=== PATIENT | female | born 1955 | race Caucasian/White ===

== ENCOUNTER 2021-05-19 22:45 | Inpatient (IN) ==
[2021-05-19] MEDS ORDERED: DIPH,PERTUSS(ACELL),TET VAC/PF 0.5 ML SYRINGE IM ONE (23:14)
[2021-05-19] MEDS ORDERED: BACITRACIN TOPICAL OINT 15 GM TUBE TOPICAL ONE (23:15)
[2021-05-19] MEDS ORDERED: FOLIC ACID 1 MG TABLET PO ONE (23:40)
[2021-05-19] MEDS ORDERED: THIAMINE 100 MG in 0.9 % SODIUM CHLORIDE 50 ML IV ONE (23:40)
[2021-05-19] MEDS ORDERED: morphine 4 MG/ML VIAL IV ONE (23:41)
[2021-05-19] MEDS ORDERED: LACTATED RINGERS 1,000 ML IV SCH (23:45)
[2021-05-19] MEDS ORDERED: ONDANSETRON 4 MG/2 ML VIAL IV PRN (23:49)
[2021-05-19] MEDS ORDERED: NALOXONE HCL 0.4 MG/ML VIAL IV PRN (23:49)
[2021-05-19] MEDS ORDERED: THIAMINE 100 MG/ML VIAL ONE (23:55)
[2021-05-20 00:07] LABS: POC INR 1.3 (0.8-1.2); POC Pro Time 15.5 sec (11.9-14.5)
[2021-05-20 00:30] LABS: Basophils # (Auto) 0.07 K/mcL (0.00-0.30); Basophils % (Auto) 0.6 % (0.0-2.0); Eosinophils # (Auto) 0.22 K/mcL (0.00-0.70); Eosinophils % (Auto) 1.7 % (0.0-7.0); Hematocrit 42.5 % (34.1-44.9); Hemoglobin 14.5 g/dL (11.2-15.7); Lymphocytes # (Auto) 2.24 K/mcL (1.50-4.80); Lymphocytes % (Auto) 17.7 % (15.5-49.0); Mean Cell Volume 98.8 fL (80.0-100.0); Mean Corpuscular HGB Conc 34.1 g/dL (31.0-36.0); Mean Platelet Volume 9.5 fL (7.4-10.4); Monocytes % (Auto) 7.1 % (1.0-12.0); Neutrophils % (Auto) 72.9 % (38.0-78.0); Platelet Count 250 K/mcL (140-440); Red Cell Distribution Width 11.2 % (11.5-14.5); WBC 12.7 K/mcL (4.5-11.0)
[2021-05-20] MEDS: HYDROmorphone 0.5 MG/0.5 ML SYRINGE IV PRN ×4 (01:07→07:49)
[2021-05-20] MEDS ORDERED: 0.9 % SODIUM CHLORIDE 1,000 ML IV SCH (01:15)
[2021-05-20] MEDS ORDERED: METHOCARBAMOL 1,000 MG/10 ML VIAL ONE (01:29)
[2021-05-20] MEDS: METHOCARBAMOL 1,000 MG/10 ML VIAL IV PRN ×3 (01:30→20:09)
[2021-05-20 04:13] LABS: Blood Urea Nitrogen 16 mg/dL (8-23); Calcium 9.2 mg/dL (8.6-10.4); Carbon Dioxide 22 mmol/L (22-30); Chloride 89 mmol/L (96-108); Glomerular Filtration Rate 90; Glucose 123 mg/dL (70-105)
--- NOTE | 2021-05-20 04:50 | XRay Report ---
CLINICAL INFORMATION: L hip pain s/p fall COMPARISON: None. FINDINGS: Acute subcapital fracture of the left hip shows 1 cm superior and posterior displacement of the femoral neck with respect to the head. No significant angulation. Mild degenerative change seen in both SI and hip joints. Soft tissue swelling over the fracture site noted. IMPRESSION: Displaced acute subcapital fracture-left hip. Mild degenerative change both hips Interpreted and Authenticated by: Trace Alston 05/20/21
--- NOTE | 2021-05-20 04:51 | Emergency Department Note ---
Fall HPI General Chief Complaint: Fall Stated Complaint: fall Time Seen by Provider: 05/19/21 23:12 Source: patient Mode of arrival: ambulatory History of Present Illness HPI Narrative: Narrative: Patient presents to the ED following mechanical trip and fall. She admits she was intoxicated tonight was ambulating in her bedroom when she simply stumbled/tripped and fell onto her left hip. She did not hit her head or sustain any loss of consciousness. Admits a skin tear to her left humerus but no pain in that arm and has full range of motion. She has significant pain which severely worsens with range of motion to her left hip has not been able to really ambulate on it. Tetanus status unsure. No head or neck pain no thoracic or abdominal pain no pain or weakness in her other extremities. Simply reports isolated left hip pain without distal numbness tingling and skin tear to her left humerus. Does take rivaroxaban for reported history of A. fib Related Data Home Medications Medication Instructions Recorded Confirmed flecainide 50 mg tablet 50 mg PO BID 08/31/18 02/07/21 lansoprazole 15 mg capsule,delayed 15 mg PO QDAY 09/12/19 02/07/21 release albuterol sulfate 90 mcg/actuation 2 puff INHALATION .q4-6h PRN g 01/24/21 02/07/21 aerosol inhaler (ProAir HFA) metoprolol tartrate 100 mg tablet 50 mg PO BID 05/19/21 Previous Rx's Medication Instructions Recorded magnesium oxide 400 mg (241.3 mg 400 mg PO BID #10 tab 11/03/16 magnesium) tablet folic acid 1 mg tablet See Rx Instructions .ROUTE 08/11/19 .COMPLEX #90 tablet budesonide-formoterol HFA 160 2 puff INHALATION BID #30.6 g 07/09/20 mcg-4.5 mcg/actuation aerosol inhaler (Symbicort) potassium chloride 20 mEq See Rx Instructions .ROUTE 01/17/21 tablet,extended release .COMPLEX #90 tab amlodipine 5 mg tablet 5 mg PO QDAY #90 tab 03/04/21 enalapril maleate 20 mg tablet 20 mg PO DAILY #90 tab 03/04/21 levothyroxine 88 mcg tablet See Rx Instructions .ROUTE 03/04/21 (Synthroid) .COMPLEX #90 unknown measurement unit code: tablet Allergies Allergy/AdvReac Type Severity Reaction Status Date / Time No Known Drug Allergies Allergy Verified 05/19/21 22:54 Review of Systems ROS ROS Narrative: Narrative: At least 10 systems reviewed and otherwise acutely negative except as in the HPI PFSH Narrative Patient History Narrative: Narrative: Medical/Surgical/Family History All Active Problems Closed fracture of left hip (Acute) Bronchitis (Acute) Cough (Acute) Alkaline phosphatase elevation (Acute) Gastric ulcer (Chronic ~2012) Weight loss (Chronic) 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 (Chronic) Allergic rhinitis (Chronic) Hyperlipidemia (Chronic) Annual physical exam (Chronic) Nummular eczema (Chronic) Fatigue (Chronic) Sinusitis (Chronic) Facial swelling (Chronic) Other psoriasis (Chronic) Shingles (Chronic) Anxiety (Chronic) Muscle spasm (Chronic) Neck pain (Chronic) DDD (degenerative disc disease), cervical (Chronic) Hematochezia (Acute) Diarrhea (Acute) Gastrointestinal bleeding, lower (Acute) History of atrial fibrillation (Acute) Erythrocytosis (Chronic) 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) Alcoholism, chronic (Chronic) 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, acquired (Chronic) Cigarette smoker (Chronic) Hypertension, essential (Chronic) COPD with emphysema (Chronic) Chronic anticoagulation (Chronic) Atrial fibrillation (Chronic) Macrocytosis (Chronic) Alcohol abuse (Chronic) Medical History Alcohol abuse Alcoholism, chronic Alkaline phosphatase elevation Allergic rhinitis Annual physical exam Anxiety Atrial fibrillation Atypical chest pain Bronchitis Chronic anticoagulation Xarelto - for a-fib Cigarette smoker COPD exacerbation COPD with emphysema DDD (degenerative disc disease), cervical Erythrocytosis Facial swelling Fatigue Gastric ulcer (~2012) Hyperlipidemia Hypertension, essential Hypokalemia Hypomagnesemia 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, acquired Ischemic colitis jail current use of 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 drug flecainide for a-fib Macrocytosis Muscle spasm NECK Neck pain Nummular eczema Other psoriasis Shingles Sinusitis Weight loss Surgical History History of colonoscopy (~09/01/18) DR BRUNO S/P hysterectomy Family History Mother , 81 Myocardial infarction Coronary artery disease History of open heart surgery Colitis Father ETOH abuse Social History Smoking Status: Former smoker Alcohol Intake Frequency: 2+ drinks per day Substance Use: does not use Exam Narrative Narrative: Narrative: Constitutional: normally developed, no acute distress . Head: Normocephalic, atraumatic, Eyes: No Icterus, PERRLA EOMI ENT: Moist mucus membranes, midface stable normal oropharynx, Neck: Supple, no midline tenderness or step-off Cardiac: Normal heart sounds, palpable radial and dorsalis pedis pulses, Pulmonary: Normal respiratory effort. Breath sounds clear, no wheeze, rhonchi, rales, Gastrointestinal: Abdomen soft, non-distended, non-tender, Musculoskeletal: Patient has superficial skin tear over her left proximal humerus but no bony tenderness and she has full range of motion in this arm without any difficulty. Right upper extremity unremarkable full range of motion well-perfused right lower extremity unremarkable full range of motion well- perfused left lower extremity she has swelling and tenderness to her left hip significantly worsens with injury any range of motion distally knee appears unremarkable and distally she has good pulses and sensation intact Skin: warm, dry Neuro: Alert and oriented appears mildly intoxicated but is GCS 15 Course Vital Signs Vital signs: Vital Signs Temperature 36.4 C 05/19/21 22:46 Pulse Rate 62 05/19/21 22:46 Respiratory Rate 18 05/19/21 22:46 Blood Pressure 149/79 05/19/21 22:46 Pulse Oximetry (%) 94 05/19/21 22:46 Temperature 36.6 C 05/20/21 00:53 Pulse Rate 68 05/20/21 00:53 Respiratory Rate 18 05/20/21 00:53 Blood Pressure 139/69 05/20/21 00:53 Pulse Oximetry (%) 95 05/20/21 00:53 [facility] Narrative Medical decision making narrative: Narrative: Patient presents after an admitted mechanical trip and fall while intoxicated at home with focal left hip pain and skin tear over her left humerus. She did not hit her head no LOC she has no focal neurologic findings and no signs of craniofacial or neck trauma. No indication for CT imaging. Does have skin tear to her left humerus that is superficial was cleaned antibiotic ointment applied and dressing. She has no bony tenderness whatsoever and no pain with range of motion do not suspect fracture no x-ray indicated We did update her tetanus also gave her some folic acid and thiamine as she has a history of frequent alcohol use. Given IV fluids analgesia X-ray of her left hip per my interpretation shows left fem neck fracture, pelvis appears stable Did consult with on-call orthopedics Dr. Davis, who will plan for repair, patient will be admitted to hospitalist. Made n.p.o. Labs show mild leukocytosis likely reactive Electrolytes show a low normal sodium and chloride likely dehydration sodium 129 chloride 89, did switch the patient's IV fluids to normal saline slow infusion at 75 cc Lab Data Result diagrams: 05/19/21 23:55 05/19/21 23:55 Labs: Lab Results 05/19/21 05/19/21 05/19/21 Range/Units 23:55 23:55 23:55 WBC 12.7 H (4.5-11.0) K/mcL RBC 4.30 (3.59-5.38) M/mcL Hgb 14.5 (11.2-15.7) g/dL Hct 42.5 (34.1-44.9) % MCV 98.8 (80.0-100.0) fL MCH 33.7 (26.0-34.0) pg MCHC 34.1 (31.0-36.0) g/dL RDW 11.2 L (11.5-14.5) % Plt Count 250 (140-440) K/mcL MPV 9.5 (7.4-10.4) fL Neut % (Auto) 72.9 (38.0-78.0) % Lymph % (Auto) 17.7 (15.5-49.0) % [facility] % (Auto) 7.1 (1.0-12.0) % Eos % (Auto) 1.7 (0.0-7.0) % Baso % (Auto) 0.6 (0.0-2.0) % Lymph # (Auto) 2.24 (1.50-4.80) K/mcL [facility] # (Auto) 0.90 (0.10-0.90) K/mcL Eos # (Auto) 0.22 (0.00-0.70) K/mcL Baso # (Auto) 0.07 (0.00-0.30) K/mcL Absolute Neutrophils 9.26 H (1.80-8.00) K/mcL POC PT 15.5 H (11.9-14.5) sec POC INR 1.3 H (0.8-1.2) Sodium 129 L (133-145) mmol/L Potassium 4.0 (3.3-5.1) mmol/L Chloride 89 L (96-108) mmol/L Carbon Dioxide 22 (22-30) mmol/L Anion Gap 18.0 H (8.0-16.0) BUN 16 (8-23) mg/dL Creatinine 0.7 (0.6-1.1) mg/dL GFR Calculation 90 Glucose 123 H (70-105) mg/dL Calcium 9.2 (8.6-10.4) mg/dL Discharge Plan Patient/Caregiver Discharge Instructions Pt seen by [employer] ADVISOR/PA only: No Clinical Impression: Closed fracture of left hip Patient Disposition: Xfer As Inpt ([facility]) Condition: Fair Discharge Date/Time: 05/20/21 00:53
--- NOTE | 2021-05-20 04:51 | XRay Report ---
CLINICAL INFORMATION: Trauma COMPARISON: 01/14/2021. TECHNIQUE: PA and Lateral views FINDINGS: The heart size, mediastinum and pulmonary vessels are unremarkable. The lungs are clear. There are no effusions. The bones and soft tissues are within normal limits. IMPRESSION: Normal chest. Interpreted and Authenticated by: Trace Alston 05/20/21
[2021-05-20 05:50] LABS: Appearance,Urine CLEAR (Clear); Bilirubin,Urine Negative (Negative); Color,Urine COLORLESS; Culture Indicated,Urine No; Glucose,Urine (UA) Negative (Negative); Ketones,Urine Negative (Negative); Leukocyte Esterase,Urine Negative /uL (Negative); Mucus,Urine FEW /hpf; Nitrate,Urine Negative (Negative); Protein,Urine Negative (Negative); Specific Gravity,Urine 1.006 (1.000-1.035); Urine Blood Negative (Negative); Urine RBC 2 /hpf (0-3); Urine Squamous Epithelial Cell < 1 /hpf (0-4); Urine WBC < 1 /hpf (0-4); Urobilinogen,Urine Negative
[2021-05-20] MEDS ORDERED: LEVOTHYROXINE 88 MCG TABLET PO SCH ×2 (07:30→08:25)
[2021-05-20] MEDS ORDERED: PANTOPRAZOLE 40 MG TABLET PO SCH (07:30)
--- NOTE | 2021-05-20 07:54 | Orthopedic History & Physical ---
HPI History of Present Illness Patient information: Note initiated : 05/20/21 at 7:39 am Service Date, if different from initiated Date: [] Patient: Bia Pacheco a 66 y/o F admitted on 05/20/21 for fall. Chief Complaint: [Lef thip pain s/p fall ] History of present illness: Ms. Pacheco is a 66 year old Female w/ history of A-fib, COPD, smoking and alcoholism. Her A-fib is managed with eliquis. She was ambulating in her home when she suffered a mechanical fall. She was subsequently transported to [facility] ER where imaging revealed a LEFT femoral neck fracture. Dr. Susan rice was consulted for treatment. Patient denies head strike or loss of consciousness during the event. Review of Systems All systems: reviewed and no additional remarkable complaints except as stated PFSH PFSH All Active Problems Closed fracture of left hip (Acute) Bronchitis (Acute) Cough (Acute) Alkaline phosphatase elevation (Acute) Gastric ulcer (Chronic ~2012) Weight loss (Chronic) 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 (Chronic) Allergic rhinitis (Chronic) Hyperlipidemia (Chronic) Annual physical exam (Chronic) Nummular eczema (Chronic) Fatigue (Chronic) Sinusitis (Chronic) Facial swelling (Chronic) Other psoriasis (Chronic) Shingles (Chronic) Anxiety (Chronic) Muscle spasm (Chronic) Neck pain (Chronic) DDD (degenerative disc disease), cervical (Chronic) Hematochezia (Acute) Diarrhea (Acute) Gastrointestinal bleeding, lower (Acute) History of atrial fibrillation (Acute) Erythrocytosis (Chronic) half-way current use of 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 drug (Chronic) Alcoholism, chronic (Chronic) 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, acquired (Chronic) Cigarette smoker (Chronic) Hypertension, essential (Chronic) COPD with emphysema (Chronic) Chronic anticoagulation (Chronic) Atrial fibrillation (Chronic) Macrocytosis (Chronic) Alcohol abuse (Chronic) Medical History Alcohol abuse Alcoholism, chronic Alkaline phosphatase elevation Allergic rhinitis Annual physical exam Anxiety Atrial fibrillation Atypical chest pain Bronchitis Chronic anticoagulation Xarelto - for a-fib Cigarette smoker COPD exacerbation COPD with emphysema DDD (degenerative disc disease), cervical Erythrocytosis Facial swelling Fatigue Gastric ulcer (~2012) Hyperlipidemia Hypertension, essential Hypokalemia Hypomagnesemia 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, acquired Ischemic colitis half-way current use of 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 drug flecainide for a-fib Macrocytosis Muscle spasm NECK Neck pain Nummular eczema Other psoriasis Shingles Sinusitis Weight loss Surgical History History of colonoscopy (~09/01/18) DR BRUNO S/P hysterectomy Family History Mother , 81 Myocardial infarction Coronary artery disease History of open heart surgery Colitis Father ETOH abuse Social History marital status: occupational status: employed physical activity: none quit status: considering quitting alcohol intake frequency: 2+ drinks per day substance use type: does not use seatbelt use: always MEDS/ALLERGIES Home Medications and Allergies Home Medications Medication Instructions Recorded Confirmed Type magnesium oxide 400 mg (241.3 mg 400 mg PO BID #10 tab 11/03/16 05/20/21 Rx magnesium) tablet flecainide 50 mg tablet 50 mg PO BID 08/31/18 05/20/21 History folic acid 1 mg tablet See Rx Instructions .ROUTE 08/11/19 05/20/21 Rx .COMPLEX #90 tablet lansoprazole 15 mg capsule,delayed 15 mg PO QDAY 09/12/19 05/20/21 History release budesonide-formoterol HFA 160 2 puff INHALATION BID #30.6 g 07/09/20 05/20/21 Rx mcg-4.5 mcg/actuation aerosol inhaler (Symbicort) potassium chloride 20 mEq See Rx Instructions .ROUTE 01/17/21 05/20/21 Rx tablet,extended release .COMPLEX #90 tab amlodipine 5 mg tablet 5 mg PO QDAY #90 tab 03/04/21 05/20/21 Rx enalapril maleate 20 mg tablet 20 mg PO DAILY #90 tab 03/04/21 05/20/21 Rx levothyroxine 88 mcg tablet See Rx Instructions .ROUTE 03/04/21 05/20/21 Rx (Synthroid) .COMPLEX #90 unknown measurement unit code: tablet metoprolol tartrate 100 mg tablet 50 mg PO BID 05/19/21 05/20/21 History [id number] See Rx Instructions .ROUTE .COMPLEX 05/20/21 05/20/21 History Allergies Allergy/AdvReac Type Severity Reaction Status Date / Time No Known Drug Allergies Allergy Verified 05/19/21 22:54 Physical Examination Narrative Narrative: Narrative: Results Labs Result Diagrams: 05/19/21 23:55 05/19/21 23:55 Labs: Abnormal lab results 05/19/21 05/19/21 05/19/21 Range/Units 23:55 23:55 23:55 WBC 12.7 H (4.5-11.0) K/mcL RDW 11.2 L (11.5-14.5) % Absolute Neutrophils 9.26 H (1.80-8.00) K/mcL POC PT 15.5 H (11.9-14.5) sec POC INR 1.3 H (0.8-1.2) Sodium 129 L (133-145) mmol/L Chloride 89 L (96-108) mmol/L Anion Gap 18.0 H (8.0-16.0) Glucose 123 H (70-105) mg/dL Urine Mucus (None) /hpf 05/20/21 Range/Units 01:25 WBC (4.5-11.0) K/mcL RDW (11.5-14.5) % Absolute Neutrophils (1.80-8.00) K/mcL POC PT (11.9-14.5) sec POC INR (0.8-1.2) Sodium (133-145) mmol/L Chloride (96-108) mmol/L Anion Gap (8.0-16.0) Glucose (70-105) mg/dL Urine Mucus Few A (None) /hpf H & H 05/19/21 Range/Units 23:55 Hgb 14.5 (11.2-15.7) g/dL Hct 42.5 (34.1-44.9) % All other labs normal. A/P Narrative A/P Narrative: On exam patient is seated in bed in some distress. She is cooperative, alert and oriented, pupils are TOMAS Head, neck, chest, abdomen and right pelvis are non- tender to palpation. She is able to move all four extremities which are warm, well perfused and neuro intact. At the LEFT hip and pelvis there is tenderness to palpation and with any ROM. Also there is a skin slip at the left humerus. Lungs are equal and clear bilat, heart normal rate and rhythm. Options were presented to the patient including non-surgical and surgical, surgical option consisting of Left Hemiarthroplasty to take place semi emergently with Dr. Davis surgeon and Samuel ORTEGA. At this time patient is interested in surgery. Plan is for LEFT hip hemiarthroplasty, timing dependent on last Eliquis dose. Surgical risks were presented to the patient including but not limited to: pain, bleeding, infection, injury to adjacent structures, cardiac and pulmonary complications, stroke risk, need for further surgery and implant failure. patient understands these risks and wishes to proceed with surgery. Time Spent With Patient Time: Total time spent is greater than 50% in coordination of care (as documented) at patient's floor/unit and/or counseling patient:
[2021-05-20] MEDS ORDERED: ZOLPIDEM 5 MG TABLET PO PRN ×2 (07:56→08:25)
[2021-05-20] MEDS ORDERED: oxyCODONE HCL 5 MG TABLET PO PRN ×2 (07:56→08:25)
[2021-05-20] MEDS ORDERED: ONDANSETRON 4 MG/2 ML VIAL IV PRN (07:56)
[2021-05-20] MEDS ORDERED: ACETAMINOPHEN 325 MG TABLET PO PRN ×2 (07:56→08:25)
[2021-05-20] MEDS ORDERED: IPRATROPIUM/ALBUTEROL 3 ML AMPUL.NEB NEB PRN ×4 (07:56→08:25)
[2021-05-20] MEDS ORDERED: SCOPOLAMINE 1 PATCH PATCH TOPICAL PRN ×2 (08:00→08:25)
[2021-05-20] MEDS ORDERED: BUDESONIDE GLYCOPYR FORMOTEROL SCH (08:00)
[2021-05-20] MEDS ORDERED: POTASSIUM CHLORIDE 20 MEQ TABLET PO SCH (08:00)
--- NOTE | 2021-05-20 08:10 | Internal Med History&Physical ---
HPI History of Present Illness Patient information: Note initiated : 05/20/21 at 7:59 am Service Date, if different from initiated Date: [] Patient: Bia Pacheco a 66 y/o F admitted on 05/20/21 for fall. Chief Complaint: [left hip fracture] History of present illness: Ms. Pacheco is a 66 year old F history of atrial fibrillation's on Xarelto, COPD, essential HTN, hypothyroidism, presenting with fall with subsequent left hip fracture. There was no prior similar episode. Last night when patient was trying to put pajama on, she fell and landed on her left side. She did not have any syncope loss of consciousness shortness of breath chest pain palpitations lightheadedness. She is coming of 10 out of 10 left lateral hip sharp constant pain without radiations. She was being brought to the ED for further evaluations. Labs significant for mild leukocytosis with WBC 12.7. Serum sodium 129. He x-ray showing displaced acute subcapital fracture of the left hip. Chronic alcohol user, said " I drink too much per day". Constitutional Constitutional: Absent chills, excessive sweating, fatigue, fever(s) or weakness EENT Eyes: Absent blurry vision, change in vision, loss of vision or other visual disturbances Ears: Absent decreased hearing or tinnitus Nose, mouth and throat: Absent abnormal hearing, dry mouth, headache(s), nasal congestion or sore throat Cardiovascular Cardiovascular: Absent chest pain, chest pain at rest, edema, irregular heart rhythm or palpatations Respiratory Respiratory: Absent cough, dyspnea or wheezing Gastrointestinal Gastrointestinal: Absent abdominal pain, constipation, diarrhea, nausea or vomiting Musculoskeletal Musculoskeletal: Absent back pain, deformity, limited range of motion, muscle cramps, muscle weakness or numbness Additional comments: left hip pain Integumentary Integumentary: Absent lesions, rash or wounds Neurological Neurological: Absent focal weakness, headache(s) or numbness Psychiatric Psychiatric: Absent anxiety, depression or hallucinations PFSH PFSH All Active Problems Essential hypertension (Acute) Hyponatremia (Acute) Closed fracture of left hip (Acute) Bronchitis (Acute) Cough (Acute) Alkaline phosphatase elevation (Acute) Gastric ulcer (Chronic ~2012) Weight loss (Chronic) 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 (Chronic) Allergic rhinitis (Chronic) Hyperlipidemia (Chronic) Annual physical exam (Chronic) Nummular eczema (Chronic) Fatigue (Chronic) Sinusitis (Chronic) Facial swelling (Chronic) Other psoriasis (Chronic) Shingles (Chronic) Anxiety (Chronic) Muscle spasm (Chronic) Neck pain (Chronic) DDD (degenerative disc disease), cervical (Chronic) Hematochezia (Acute) Diarrhea (Acute) Gastrointestinal bleeding, lower (Acute) History of atrial fibrillation (Acute) Erythrocytosis (Chronic) [facility] current use of 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 drug (Chronic) Alcoholism, chronic (Chronic) 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, acquired (Chronic) Cigarette smoker (Chronic) Hypertension, essential (Chronic) COPD with emphysema (Chronic) Chronic anticoagulation (Chronic) Atrial fibrillation (Chronic) Macrocytosis (Chronic) Alcohol abuse (Chronic) Medical History Alcohol abuse Alcoholism, chronic Alkaline phosphatase elevation Allergic rhinitis Annual physical exam Anxiety Atrial fibrillation Atypical chest pain Bronchitis Chronic anticoagulation Xarelto - for a-fib Cigarette smoker COPD exacerbation COPD with emphysema DDD (degenerative disc disease), cervical Erythrocytosis Facial swelling Fatigue Gastric ulcer (~2012) Hyperlipidemia Hypertension, essential Hypokalemia Hypomagnesemia 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, 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 current use of 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 drug flecainide for a-fib Macrocytosis Muscle spasm NECK Neck pain Nummular eczema Other psoriasis Shingles Sinusitis Weight loss Surgical History History of colonoscopy (~09/01/18) DR BRUNO S/P hysterectomy Family History Mother , 81 Myocardial infarction Coronary artery disease History of open heart surgery Colitis Father ETOH abuse Social History marital status: occupational status: employed physical activity: none quit status: considering quitting alcohol intake frequency: 2+ drinks per day substance use type: does not use seatbelt use: always MEDS/ALLERGIES Home Medications and Allergies Home Medications Medication Instructions Recorded Confirmed Type magnesium oxide 400 mg (241.3 mg 400 mg PO BID #10 tab 11/03/16 05/20/21 Rx magnesium) tablet flecainide 50 mg tablet 50 mg PO BID 08/31/18 05/20/21 History folic acid 1 mg tablet See Rx Instructions .ROUTE 08/11/19 05/20/21 Rx .COMPLEX #90 tablet lansoprazole 15 mg capsule,delayed 15 mg PO QDAY 09/12/19 05/20/21 History release budesonide-formoterol HFA 160 2 puff INHALATION BID #30.6 g 07/09/20 05/20/21 Rx mcg-4.5 mcg/actuation aerosol inhaler (Symbicort) potassium chloride 20 mEq See Rx Instructions .ROUTE 01/17/21 05/20/21 Rx tablet,extended release .COMPLEX #90 tab amlodipine 5 mg tablet 5 mg PO QDAY #90 tab 03/04/21 05/20/21 Rx enalapril maleate 20 mg tablet 20 mg PO DAILY #90 tab 03/04/21 05/20/21 Rx levothyroxine 88 mcg tablet See Rx Instructions .ROUTE 03/04/21 05/20/21 Rx (Synthroid) .COMPLEX #90 unknown measurement unit code: tablet metoprolol tartrate 100 mg tablet 50 mg PO BID 05/19/21 05/20/21 History [id number] See Rx Instructions .ROUTE .COMPLEX 05/20/21 05/20/21 History Allergies Allergy/AdvReac Type Severity Reaction Status Date / Time No Known Drug Allergies Allergy Verified 05/19/21 22:54 EXAM Constitutional Vitals: Temp Pulse Resp BP Pulse Ox 36.9 C 69 23 H 134/66 95 05/20/21 07:19 05/20/21 07:19 05/20/21 07:19 05/20/21 07:19 05/20/21 07:19 General appearance: cooperative and moderate distress Head Head exam: Present atraumatic and normocephalic Eye Eye exam: Present EOMI and PERRL ENT ENT exam: Present mucous membranes moist, normal exam and normal external ear exam Neck Neck exam: Present normal inspection; Absent lymphadenopathy, tenderness or thyromegaly Respiratory Respiratory exam: Absent accessory muscle use, respiratory distress or wheezes Cardiovascular Cardiovascular exam: Present irregular rhythm; Absent JVD GI/Abdominal GI/Abdominal exam: Present normal bowel sounds and soft; Absent organomegaly or tenderness Extremities Exam Extremities exam: Present normal capillary refill and tenderness; Absent full ROM or normal inspection Neurological Exam Neurological exam: Present alert, CN II-XII intact and oriented X3; Absent motor sensory deficit Psychiatric Psychiatric exam: Present normal affect and normal mood; Absent anxious or depressed Skin Skin exam: Present dry and intact DATA Data Completed and Pending Labs: Labs from last 24 hours 05/20/21 05/19/21 05/19/21 01:25 23:55 23:55 WBC RBC Hgb Hct MCV MCH MCHC RDW Plt Count MPV Neut % (Auto) Lymph % (Auto) [place] % (Auto) Eos % (Auto) Baso % (Auto) Lymph # (Auto) [place] # (Auto) Eos # (Auto) Baso # (Auto) Absolute Neutrophils POC PT 15.5 H POC INR 1.3 H Sodium 129 L Potassium 4.0 Chloride 89 L Carbon Dioxide 22 Anion Gap 18.0 H BUN 16 Creatinine 0.7 GFR Calculation 90 Glucose 123 H Calcium 9.2 Urine Color Colorless Urine Appearance Clear Urine pH 8.0 Ur Specific [place] 1.006 Urine Protein Negative Urine Glucose (UA) Negative Urine Ketones Negative Urine Occult Blood Negative Urine Nitrate Negative Urine Bilirubin Negative Urine Urobilinogen Negative Ur Leukocyte Esterase Negative Urine RBC 2 Urine WBC < 1 Ur Squamous Epith Cells < 1 Urine Bacteria None Urine Mucus Few A Ur Culture Indicated? No 05/19/21 23:55 WBC 12.7 H RBC 4.30 Hgb 14.5 Hct 42.5 MCV 98.8 MCH 33.7 MCHC 34.1 RDW 11.2 L Plt Count 250 MPV 9.5 Neut % (Auto) 72.9 Lymph % (Auto) 17.7 [place] % (Auto) 7.1 Eos % (Auto) 1.7 Baso % (Auto) 0.6 Lymph # (Auto) 2.24 [place] # (Auto) 0.90 Eos # (Auto) 0.22 Baso # (Auto) 0.07 Absolute Neutrophils 9.26 H POC PT POC INR Sodium Potassium Chloride Carbon Dioxide Anion Gap BUN Creatinine GFR Calculation Glucose Calcium Urine Color Urine Appearance Urine pH Ur Specific [place] Urine Protein Urine Glucose (UA) Urine Ketones Urine Occult Blood Urine Nitrate Urine Bilirubin Urine Urobilinogen Ur Leukocyte Esterase Urine RBC Urine WBC Ur Squamous Epith Cells Urine Bacteria Urine Mucus Ur Culture Indicated? A/P Assessment and plan (1) Closed fracture of left hip: Status: Acute (2) COPD with emphysema: Status: Chronic Qualifiers: Emphysema type: unspecified Qualified Code(s): J43.9 - Emphysema, unspecified (3) Chronic anticoagulation: Status: Chronic Comment: Xarelto - for a-fib (4) Atrial fibrillation: Status: Chronic Qualifiers: Atrial fibrillation type: unspecified chronic Qualified Code(s): I48.20 - Chronic atrial fibrillation, unspecified; I48.2 - Chronic atrial fibrillation (5) Cigarette smoker: Status: Chronic (6) Alcohol abuse: Status: Chronic (7) 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: Status: Chronic Qualifiers: 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 type: acquired Qualified Code(s): E03.9 - 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, unspecified (8) Hyponatremia: Status: Acute (9) Essential hypertension: Status: Acute Narrative A/P Narrative: Assessment and Plans: 1. Closed displaced left hip fracture: Admit to inpatient med surg Dr. Davis consulted for surgery scheduled for today NPO with IV NS@75cc/hr HOld Xarelto Bedrest Oxycodone PRN moderate pain Dilaudid IV PRN severe pain Physical therapy Occupational therapy 2. Essential HTN: Currently normotensive Continue home regimen of oral antihypertensives Metoprolol tartrate, Lisinopril, Amlodipine 3. 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: Continue oral thyroid replacement therapy 4. Atrial fibrillation: Hold Xarelto for planned orthopedic surgery Continue Flecainide and Metoprolol tartrate 5. 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 Chronic alcoholism: Watch for symptoms of alcohol withdraw post-surgically and either CIWA protocol or beer therapy 7. Hyponatremia: IV NS@75cc/hr Repeat BMP in the morning to trend serum sodium level 8. COPD: Continue Symbicort DuoNEB NEB PRN wheezing GI ppx: continue oral PPI from home regimen DVT ppx: SCDs Code status: Full Prognosis: stable Disposition: inpatient med surg Time Spent With Patient Time: Total time spent is greater than 50% in coordination of care (as documented) at patient's floor/unit and/or counseling patient: Total time spent with greater than 50% in coordination of care (as documented) at patient's floor/unit and/or counseling patient:: 25 - 35 minutes
[2021-05-20] MEDS ORDERED: POTASSIUM CHLORIDE SCH (08:25)
[2021-05-20] MEDS ORDERED: NALOXONE HCL 0.4 MG/ML VIAL IV PRN (08:25)
[2021-05-20] MEDS ORDERED: FOLIC ACID 1 MG TABLET PO SCH ×2 (08:25→09:00)
[2021-05-20] MEDS ORDERED: HYDROmorphone 0.5 MG/0.5 ML SYRINGE IV PRN (08:25)
[2021-05-20] MEDS ORDERED: LISINOPRIL 20 MG TABLET PO SCH (09:00)
[2021-05-20] MEDS ORDERED: MAGNESIUM OXIDE 400 MG TABLET PO SCH (09:00)
[2021-05-20] MEDS ORDERED: METOPROLOL TARTRATE 100 MG PO SCH (09:00)
[2021-05-20] MEDS ORDERED: BUDESONIDE FORMOTEROL INHALATION SCH (09:00)
[2021-05-20] MEDS ORDERED: ENALAPRIL MALEATE 20 MG PO SCH (09:00)
[2021-05-20] MEDS ORDERED: DOCUSATE SODIUM 100 MG CAPSULE PO SCH (09:00)
[2021-05-20] MEDS ORDERED: amLODIPine 5 MG TABLET PO SCH (09:00)
[2021-05-20] MEDS ORDERED: FLECAINIDE 50 MG TABLET PO SCH (09:00)
[2021-05-20] MEDS ORDERED: LANSOPRAZOLE 15 MG PO SCH (09:00)
[2021-05-20] MEDS ORDERED: Budesonide-Formoterol [Symbicort] 160-4.5 mcg Inhaler INH SCH (09:00)
[2021-05-20] MEDS: amLODIPine 5 MG TABLET PO SCH (09:27)
[2021-05-20] MEDS: DOCUSATE SODIUM 100 MG CAPSULE PO SCH ×2 (09:27→20:05)
[2021-05-20] MEDS: LISINOPRIL 20 MG TABLET PO SCH (09:27)
[2021-05-20] MEDS: FOLIC ACID 1 MG TABLET PO SCH (09:28)
[2021-05-20] MEDS: METOPROLOL TARTRATE 50 MG TABLET PO SCH ×2 (09:28→20:09)
[2021-05-20] MEDS: MAGNESIUM OXIDE 400 MG TABLET PO SCH ×2 (09:28→20:09)
[2021-05-20] MEDS: POTASSIUM CHLORIDE 20 MEQ TABLET PO SCH (09:28)
[2021-05-20] MEDS: Budesonide-Formoterol [Symbicort] 160-4.5 mcg Inhaler INH SCH ×2 (09:29→20:05)
[2021-05-20] MEDS: FLECAINIDE 50 MG TABLET PO SCH ×2 (09:29→20:17)
[2021-05-20] MEDS: HYDROmorphone 1 MG/ML SYRINGE IV PRN ×4 (10:59→23:13)
[2021-05-20] MEDS: ONDANSETRON 4 MG/2 ML VIAL IV PRN (10:59)
[2021-05-20] MEDS: 0.9 % SODIUM CHLORIDE 1,000 ML IV SCH ×2 (11:02→13:54)
[2021-05-20] MEDS ORDERED: LORazepam 2 MG/ML VIAL IV PRN (11:58)
--- NOTE | 2021-05-20 12:00 | Internal Med Progress Note ---
SUBJECTIVE Subjective Patient information: Note initiated : 05/20/21 at 11:55 am Service Date, if different from initiated Date: [] Patient: Bia Pacheco a 66 y/o F admitted on 05/20/21 for fall. Chief Complaint: [] Interval history: History of present illness: Ms. Pacheco is a 66 year old F history of atrial fibrillation's on Xarelto, COPD, essential HTN, hypothyroidism, presenting with fall with subsequent left hip fracture. There was no prior similar episode. Last night when patient was trying to put pajama on, she fell and landed on her left side. She did not have any syncope loss of consciousness shortness of breath chest pain palpitations lightheadedness. She is coming of 10 out of 10 left lateral hip sharp constant pain without radiations. She was being brought to the ED for further evaluations. Labs significant for mild leukocytosis with WBC 12.7. Serum sodium 129. He x-ray showing displaced acute subcapital fracture of the left hip. Chronic alcohol user, said " I drink too much per day". 05/21 Constitutional Vitals: Vital Signs Temp Pulse Resp BP Pulse Ox 98.4 F 69 23 H 134/66 95 05/20/21 07:19 05/20/21 07:19 05/20/21 07:19 05/20/21 07:19 05/20/21 07:19 Period Temp Pulse Resp BP Sys/Brooks Pulse Ox Last 24 Hr 97.5 F-98.4 F 62-69 16-23 121-160/65-100 94-98 Intake and Output 05/19/21 05/20/21 05/20/21 21:59 05:59 13:59 Intake Total 51 1000 Output Total 750 Balance -699 1000 Weight 66.723 kg Intake & Output: Intake & Output 05/19/21 05/20/21 05/20/21 21:59 05:59 13:59 Intake Total 51 1000 Output Total 750 Balance -699 1000 Weight 66.723 kg Intake: IV 51 1000 Lactated Ringers 1,000 ml @ 125 1000 mls/hr IV .Q8H [facility] Rx#: [id number] Vitamin B1 100 mg In Sodium 51 Chloride 0.9% 50 ml @ 50 mls/hr IV ONCE ONE Rx#:[id number] Output: Urine Catheter Amount 750 Other: Meal Breakfast Percent of Meal Consumed 50% Feeding Ability Independent Urine Appearance Clear Uretheral ([place]) Clear Clear Urine Color Pale Uretheral ([place]) Pale Bright Yellow Straw Exam: General: Alert, Awake, No acute Distress Eyes/N/T: EOMI, Head/Neck: neck supple, CV: RRR, No murmurs, Pulm: Clear b/l, no wheezing/rhonchi/rales Abd: soft, nontender, +BS x4 Ext: no clubbing/cyanosis/edema Neuro: Alert, no focal deficits, moves all extremities, Skin: warm/dry OBJ DATA Labs CBC & Chem 7: 05/19/21 23:55 05/19/21 23:55 Labs: Abnormal Lab Results 05/20/21 05/19/21 05/19/21 01:25 23:55 23:55 WBC RDW Absolute Neutrophils POC PT 15.5 H POC INR 1.3 H Sodium 129 L Chloride 89 L Anion Gap 18.0 H Glucose 123 H Urine Mucus Few A 05/19/21 23:55 WBC 12.7 H RDW 11.2 L Absolute Neutrophils 9.26 H POC PT POC INR Sodium Chloride Anion Gap Glucose Urine Mucus Meds: Medications Acetaminophen (Acetaminophen 325 Mg Tablet) 650 mg PO Q6HP PRN; Protocol PRN Reason: Per Pain Protocol/Fever > 101 Albuterol/Ipratropium (Ipratropium/Albuterol 3 Ml Ampul.Neb) 3 ml NEB ONCE PRN PRN Reason: Shortness Of Breath Stop: 05/20/21 23:59 Albuterol/Ipratropium (Ipratropium/Albuterol 3 Ml Ampul.Neb) 3 ml NEB Q4HRT PRN PRN Reason: Wheezing Amlodipine Besylate (Amlodipine 5 Mg Tablet) 5 mg PO QDAY [facility] Last Admin: 05/20/21 09:27 Dose: 5 mg Documented by: Docusate Sodium (Docusate Sodium 100 Mg Capsule) 100 mg PO BID [facility] Last Admin: 05/20/21 09:27 Dose: 100 mg Documented by: Flecainide Acetate (Flecainide 50 Mg Tablet) 50 mg PO BID [facility] Last Admin: 05/20/21 09:29 Dose: 50 mg Documented by: Folic Acid (Folic Acid 1 Mg Tablet) 1 mg PO DAILY [facility] Last Admin: 05/20/21 09:28 Dose: 1 mg Documented by: Hydromorphone HCl (Hydromorphone 1 Mg/Ml Syringe) 1 mg IV Q2HP PRN; Protocol PRN Reason: Per Pain Protocol Last Admin: 05/20/21 10:59 Dose: 1 mg Documented by: Sodium Chloride (Sodium Chloride 0.9%) 1,000 mls @ 75 mls/hr IV .[id number] [facility] Last Admin: 05/20/21 11:02 Dose: Not Given Documented by: Levothyroxine Sodium (Levothyroxine 88 Mcg Tablet) 88 mcg PO [facility] Lisinopril (Lisinopril 20 Mg Tablet) 20 mg PO DAILY [facility] Last Admin: 05/20/21 09:27 Dose: 20 mg Documented by: Magnesium Oxide (Magnesium Oxide 400 Mg Tablet) 400 mg PO BID [facility] Last Admin: 05/20/21 09:28 Dose: 400 mg Documented by: Methocarbamol (Methocarbamol 1,000 Mg/10 Ml Vial) 750 mg IV Q6HP PRN PRN Reason: Muscle Spasm Metoprolol Tartrate (Metoprolol Tartrate 50 Mg Tablet) 100 mg PO BID [facility] Last Admin: 05/20/21 09:28 Dose: 100 mg Documented by: Naloxone HCl (Naloxone Hcl 0.4 Mg/Ml Vial) 0.1 mg IV Q2MIN PRN PRN Reason: Opiate Reversal Ondansetron HCl (Ondansetron 4 Mg/2 Ml Vial) 4 mg IV Q6HP PRN PRN Reason: Nausea And Vomiting Last Admin: 05/20/21 10:59 Dose: 4 mg Documented by: Oxycodone HCl (Oxycodone Hcl 5 Mg Tablet) 5 mg PO Q4HP PRN; Protocol PRN Reason: Per Pain Protocol Pantoprazole Sodium (Pantoprazole 40 Mg Tablet) 40 mg PO [facility] Budesonide- Formoterol [ Symbicort] 160-4.5 Mcg Inhaler 2 dose INH BID [facility] Last Admin: 05/20/21 09:29 Dose: Not Given Documented by: Potassium Chloride (Potassium Chloride 20 Meq Tablet) 20 meq PO [facility] Last Admin: 05/20/21 09:28 Dose: 20 meq Documented by: Scopolamine (Scopolamine 1 Patch Patch) 1 patch TOPICAL PREOP PRN PRN Reason: Nausea And Vomiting Stop: 05/20/21 23:59 Senna (Sennosides 1 Tablet) 2 tab PO HS [facility] Sodium Chloride (0.9 % Sodium Chloride 10 Ml Syringe) 10 ml IV Q8 [facility] Zolpidem Tartrate (Zolpidem 5 Mg Tablet) 5 mg PO HSP PRN PRN Reason: Insomnia A/P Narrative A/P Narrative: Assessment and Plans: *Closed displaced left hip fracture: -Dr. 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
[2021-05-20] MEDS: THIAMINE 100 MG in 0.9 % SODIUM CHLORIDE 50 ML IV SCH (12:36)
[2021-05-20] MEDS: 0.9 % SODIUM CHLORIDE 10 ML SYRINGE IV SCH ×2 (12:43→20:13)
[2021-05-20] MEDS ORDERED: 0.9 % SODIUM CHLORIDE 10 ML SYRINGE IV SCH ×2 (14:00)
[2021-05-20] MEDS: SENNOSIDES 1 TABLET PO SCH (20:05)
[2021-05-20] MEDS ORDERED: SENNOSIDES 1 TABLET PO SCH (21:00)
[2021-05-21] MEDS: 0.9 % SODIUM CHLORIDE 1,000 ML IV SCH ×2 (02:28→10:07)
[2021-05-21] MEDS: HYDROmorphone 1 MG/ML SYRINGE IV PRN ×3 (02:31→12:57)
[2021-05-21] MEDS: METHOCARBAMOL 1,000 MG/10 ML VIAL IV PRN (02:31)
[2021-05-21] MEDS: 0.9 % SODIUM CHLORIDE 10 ML SYRINGE IV SCH ×3 (05:24→20:42)
[2021-05-21 06:49] LABS: Basophils # (Auto) 0.05 K/mcL (0.00-0.30); Basophils % (Auto) 0.5 % (0.0-2.0); Eosinophils # (Auto) 0.09 K/mcL (0.00-0.70); Eosinophils % (Auto) 0.9 % (0.0-7.0); Hematocrit 40.8 % (34.1-44.9); Hemoglobin 13.4 g/dL (11.2-15.7); Lymphocytes # (Auto) 1.74 K/mcL (1.50-4.80); Lymphocytes % (Auto) 17.5 % (15.5-49.0); Mean Corpuscular HGB Conc 32.8 g/dL (31.0-36.0); Mean Platelet Volume 9.4 fL (7.4-10.4); Monocytes % (Auto) 11.1 % (1.0-12.0); Platelet Count 229 K/mcL (140-440); Red Cell Distribution Width 11.2 % (11.5-14.5)
[2021-05-21 07:28] LABS: ALT/SGPT 16 U/L (<40); AST/SGOT 18 U/L (<32); Albumin 3.8 gm/dL (3.2-5.2); Albumin/Globulin Ratio 1.5 (1.0-2.3); Alkaline Phosphatase 89 U/L (39-117); Bilirubin,Direct 0.2 mg/dL (<0.3); Bilirubin,Total 0.9 mg/dL (0.1-1.0); Blood Urea Nitrogen 15 mg/dL (8-23); Calcium 8.9 mg/dL (8.6-10.4); Carbon Dioxide 22 mmol/L (22-30); Chloride 92 mmol/L (96-108); Globulin 2.6 gm/dL (2.2-3.7); Glomerular Filtration Rate 90; Glucose 77 mg/dL (70-105); Lactate Dehydrogenase 217 U/L (135-225); Phosphorous 3.2 mg/dL (2.5-4.5); Triglycerides 67 mg/dL (<150); Uric Acid 3.8 mg/dL (2.5-8.0)
--- NOTE | 2021-05-21 08:02 | Internal Med Progress Note ---
SUBJECTIVE Subjective Patient information: Note initiated : 05/21/21 at 7:58 am Service Date, if different from initiated Date: [] Patient: Bia Pacheco a 66 y/o F admitted on 05/20/21 for fall. Chief Complaint: [] Interval history: History of present illness: Ms. Pacheco is a 66 year old F history of atrial fibrillation's on Xarelto, COPD, essential HTN, hypothyroidism, presenting with fall with subsequent left hip fracture. There was no prior similar episode. Last night when patient was trying to put pajama on, she fell and landed on her left side. She did not have any syncope loss of consciousness shortness of breath chest pain palpitations lightheadedness. She is coming of 10 out of 10 left lateral hip sharp constant pain without radiations. She was being brought to the ED for further evaluations. Labs significant for mild leukocytosis with WBC 12.7. Serum sodium 129. He x-ray showing displaced acute subcapital fracture of the left hip. Chronic alcohol user, said " I drink too much per day". 05/21 Poor sleep because of hip discomfort from fracture. Has some nausea from medications. Otherwise no new complaints. Review of Systems: denies headache/fever/chills/nausea/vomiting/chest or abdominal pain/cough/dyspnea/diarrhea. Otherwise see above. Constitutional Vitals: Vital Signs Temp Pulse Resp BP Pulse Ox 98.8 F 65 16 149/75 90 05/21/21 02:29 05/21/21 02:29 05/21/21 02:29 05/21/21 02:29 05/21/21 02:29 Period Temp Pulse Resp BP Sys/Brooks Pulse Ox Last 24 Hr 97.4 F-98.8 F 62-70 16-19 131-157/64-75 90-95 Intake and Output 05/20/21 05/21/21 05/21/21 21:59 05:59 13:59 Intake Total 450 1543 Output Total 205 600 Balance 245 943 Weight 69.672 kg Intake & Output: Intake & Output 05/20/21 05/21/21 05/21/21 21:59 05:59 13:59 Intake Total 450 1543 Output Total 205 600 Balance 245 943 Weight 69.672 kg Intake: IV 943 Sodium Chloride 0.9% 1,000 ml @ 943 75 mls/hr IV .[id number] [facility] Rx#: [id number] Oral 450 600 Output: Urine Catheter Amount 205 600 Other: Meal Dinner Percent of Meal Consumed 0% Feeding Ability Assist with Tray Set Up Urine Appearance Clear Clear Uretheral (Auguste) Clear Urine Color Dark Yellow Bright Yellow Uretheral (Auguste) Bright Yellow Urine Odor Normal Exam: General: Alert, Awake, No acute Distress Eyes/N/T: EOMI, Head/Neck: neck supple, CV: RRR, No murmurs, Pulm: Clear b/l, no wheezing/rhonchi/rales Abd: soft, nontender, +BS x4 Ext: no clubbing/cyanosis/edema Neuro: Alert, no focal deficits, moves all extremities, Skin: warm/dry OBJ DATA Labs CBC & Chem 7: 05/21/21 05:34 05/21/21 05:34 Labs: Abnormal Lab Results 05/21/21 05/21/21 05/20/21 05:34 05:34 01:25 WBC MCV 102.0 H RDW 11.2 L [place] # (Auto) 1.10 H Absolute Neutrophils POC PT POC INR Sodium 127 L Chloride 92 L Anion Gap Glucose GGT 39 H Urine Mucus Few A 05/19/21 05/19/21 05/19/21 23:55 23:55 23:55 WBC 12.7 H MCV RDW 11.2 L [place] # (Auto) Absolute Neutrophils 9.26 H POC PT 15.5 H POC INR 1.3 H Sodium 129 L Chloride 89 L Anion Gap 18.0 H Glucose 123 H GGT Urine Mucus Meds: Medications Acetaminophen (Acetaminophen 325 Mg Tablet) 650 mg PO Q6HP PRN; Protocol PRN Reason: Per Pain Protocol/Fever > 101 Albuterol/Ipratropium (Ipratropium/Albuterol 3 Ml Ampul.Neb) 3 ml NEB Q4HRT PRN PRN Reason: Wheezing Amlodipine Besylate (Amlodipine 5 Mg Tablet) 5 mg PO QDAY [facility] Last Admin: 05/20/21 09:27 Dose: 5 mg Documented by: Chlordiazepoxide HCl (Chlordiazepoxide 25 Mg Capsule) 25 mg PO Q4HP PRN PRN Reason: Alcohol Withdrawal Docusate Sodium (Docusate Sodium 100 Mg Capsule) 100 mg PO BID [facility] Last Admin: 05/20/21 20:05 Dose: Not Given Documented by: Flecainide Acetate (Flecainide 50 Mg Tablet) 50 mg PO BID [facility] Last Admin: 05/20/21 20:17 Dose: 50 mg Documented by: Folic Acid (Folic Acid 1 Mg Tablet) 1 mg PO DAILY [facility] Last Admin: 05/20/21 09:28 Dose: 1 mg Documented by: Hydromorphone HCl (Hydromorphone 1 Mg/Ml Syringe) 1 mg IV Q2HP PRN; Protocol PRN Reason: Per Pain Protocol Last Admin: 05/21/21 06:06 Dose: 1 mg Documented by: Sodium Chloride (Sodium Chloride 0.9%) 1,000 mls @ 75 mls/hr IV .[id number] [facility] Last Admin: 05/21/21 02:28 Dose: 75 mls/hr Documented by: Thiamine HCl 100 mg/ Sodium (Chloride) 51 mls @ 50 mls/hr IV DAILY [facility] Last Infusion: 05/20/21 13:53 Dose: Infused Documented by: Iron Carb/Multivit/Senior Interior Designer/Folic Acid (Multivit,Ther Iron,Ca,Fa & Min 1 Tablet) 1 tab PO DAILY [facility] Levothyroxine Sodium (Levothyroxine 88 Mcg Tablet) 88 mcg PO QAMAC [facility] Lisinopril (Lisinopril 20 Mg Tablet) 20 mg PO DAILY [facility] Last Admin: 05/20/21 09:27 Dose: 20 mg Documented by: Lorazepam (Lorazepam 2 Mg/Ml Vial) 0 mg IV Q4HP PRN; Protocol PRN Reason: Alcohol Withdrawal Magnesium Oxide (Magnesium Oxide 400 Mg Tablet) 400 mg PO BID [facility] Last Admin: 05/20/21 20:09 Dose: 400 mg Documented by: Methocarbamol (Methocarbamol 1,000 Mg/10 Ml Vial) 750 mg IV Q6HP PRN PRN Reason: Muscle Spasm Last Admin: 05/21/21 02:31 Dose: 750 mg Documented by: Metoprolol Tartrate (Metoprolol Tartrate 50 Mg Tablet) 100 mg PO BID [facility] Last Admin: 05/20/21 20:09 Dose: 100 mg Documented by: Naloxone HCl (Naloxone Hcl 0.4 Mg/Ml Vial) 0.1 mg IV Q2MIN PRN PRN Reason: Opiate Reversal Ondansetron HCl (Ondansetron 4 Mg/2 Ml Vial) 4 mg IV Q6HP PRN PRN Reason: Nausea And Vomiting Last Admin: 05/20/21 10:59 Dose: 4 mg Documented by: Oxycodone HCl (Oxycodone Hcl 5 Mg Tablet) 5 mg PO Q4HP PRN; Protocol PRN Reason: Per Pain Protocol Pantoprazole Sodium (Pantoprazole 40 Mg Tablet) 40 mg PO [facility] Budesonide- Formoterol [ Symbicort] 160-4.5 Mcg Inhaler 2 dose INH BID [facility] Last Admin: 05/20/21 20:05 Dose: Not Given Documented by: Potassium Chloride (Potassium Chloride 20 Meq Tablet) [facility]q [facility] Last Admin: 05/20/21 09:28 Dose: 20 meq Documented by: Senna (Sennosides 1 Tablet) 2 tab PO [facility] Last Admin: 05/20/21 20:05 Dose: Not Given Documented by: Sodium Chloride (0.9 % Sodium Chloride 10 Ml Syringe) 10 ml IV Q8 [facility] Last Admin: 05/21/21 05:24 Dose: Not Given Documented by: Zolpidem Tartrate (Zolpidem 5 Mg Tablet) 5 mg PO HSP PRN PRN Reason: Insomnia Last Admin: 05/20/21 23:16 Dose: 5 mg Documented by: A/P Narrative A/P Narrative: Assessment and Plans: *Closed displaced left hip fracture: *Essential HTN: *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: *Atrial fibrillation: on Xarelto/Flecainide/Metoprolol tartrate *Tobacco abuse: *Chronic alcoholism: *Hyponatremia: *COPD: Continue Symbicort, DuoNEB NEB PRN wheezing *GERD: P: -Dr. 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
[2021-05-21 09:00] LABS: Thyroid Stimulating Hormone 3.67 uIU/mL (0.27-5.01)
[2021-05-21] MEDS: PANTOPRAZOLE 40 MG TABLET PO SCH (09:01)
[2021-05-21] MEDS: DOCUSATE SODIUM 100 MG CAPSULE PO SCH ×2 (09:02→20:33)
[2021-05-21] MEDS: MULTIVIT,THER IRON,CA,FA & MIN 1 TABLET PO SCH (09:02)
[2021-05-21] MEDS: FOLIC ACID 1 MG TABLET PO SCH (09:02)
[2021-05-21] MEDS: POTASSIUM CHLORIDE 20 MEQ TABLET PO SCH (09:02)
[2021-05-21] MEDS: amLODIPine 5 MG TABLET PO SCH (09:02)
[2021-05-21] MEDS: LEVOTHYROXINE 88 MCG TABLET PO SCH (09:02)
[2021-05-21] MEDS: METOPROLOL TARTRATE 50 MG TABLET PO SCH ×2 (09:02→20:33)
[2021-05-21] MEDS: MAGNESIUM OXIDE 400 MG TABLET PO SCH ×2 (09:02→20:33)
[2021-05-21] MEDS: FLECAINIDE 50 MG TABLET PO SCH ×2 (09:03→20:42)
[2021-05-21] MEDS: LISINOPRIL 20 MG TABLET PO SCH (09:03)
[2021-05-21] MEDS: Budesonide-Formoterol [Symbicort] 160-4.5 mcg Inhaler INH SCH ×2 (09:03→20:43)
[2021-05-21] MEDS: THIAMINE 100 MG in 0.9 % SODIUM CHLORIDE 50 ML IV SCH (10:04)
[2021-05-21] MEDS: ONDANSETRON 4 MG/2 ML VIAL IV PRN (12:58)
[2021-05-21] MEDS ORDERED: ceFAZolin 2 GM in DEXTROSE 5% IN WATER 50 ML IV SCH ×2 (16:15→17:30)
[2021-05-21] MEDS ORDERED: TRANEXAMIC ACID 1,000 MG/10 ML VIAL ONE (16:18)
[2021-05-21] MEDS ORDERED: fentaNYL 100 MCG/2 ML VIAL IV ONE (16:18)
[2021-05-21] MEDS ORDERED: ONDANSETRON 4 MG/2 ML VIAL ONE (16:18)
[2021-05-21] MEDS ORDERED: MAGNESIUM SULFATE 2 GM/50 ML BAG IV ONE (16:18)
[2021-05-21] MEDS ORDERED: KETAMINE 50 MG/ML Syringe (ANEST) IV ONE (16:18)
[2021-05-21] MEDS ORDERED: GLYCOPYRROLATE 0.2 MG/ML VIAL IV ONE (16:18)
[2021-05-21] MEDS ORDERED: LIDOCAINE HCL/PF 100 MG/5 ML SYRINGE IV ONE (16:18)
[2021-05-21] MEDS ORDERED: PROPOFOL 200 MG/20 ML VIAL IV ONE (16:18)
[2021-05-21] MEDS ORDERED: PHENYLephrine 1 MG/10 ML SYRINGE (ANEST) ONE (16:18)
[2021-05-21] MEDS ORDERED: DEXAMETHASONE 10 MG/ML VIAL ONE (16:18)
[2021-05-21] MEDS ORDERED: MIDAZOLAM 2 MG/2 ML VIAL ONE (16:18)
[2021-05-21] MEDS ORDERED: BENZOCAINE/MENTHOL 1 LOZENGE PO PRN ×2 (16:48→17:23)
[2021-05-21] MEDS ORDERED: MEPERIDINE 25 MG/ML VIAL IV PRN (16:48)
[2021-05-21] MEDS ORDERED: METHOCARBAMOL 1,000 MG/10 ML VIAL IV PRN (16:48)
[2021-05-21] MEDS ORDERED: ACETAMINOPHEN 1,000 MG/100 ML BAG IV ONE (16:48)
[2021-05-21] MEDS ORDERED: ONDANSETRON 4 MG/2 ML VIAL IV PRN (16:48)
[2021-05-21] MEDS ORDERED: IPRATROPIUM/ALBUTEROL 3 ML AMPUL.NEB NEB PRN (16:48)
[2021-05-21] MEDS ORDERED: ePHEDrine 50 MG/ML AMPUL IV PRN (16:48)
[2021-05-21] MEDS ORDERED: GENTAMICIN SULFATE 800 MG/20 ML VIAL IR ONE (16:57)
[2021-05-21] MEDS ORDERED: LACTATED RINGERS 1,000 ML IV SCH (17:00)
--- NOTE | 2021-05-21 17:21 | General Surgery Procedure Note ---
Date of procedure: Note initiated : 05/21/21 at 5:20 pm Service Date, if different from initiated Date: [] Pre-op diagnosis: left femoral neck fracture Post-op diagnosis: same Procedure: left hip hemiarthroplasty Anesthesia: KARI Surgeon: Trace Davis Cytotechnologist/Histotechnologist: Harjinder Puente Estimated blood loss: 150 Pathology: none sent Condition: stable Disposition: PACU
--- NOTE | 2021-05-21 17:22 | Discharge Plan ---
Discharge Instructions - [facility] Patient Instructions Total Hip Protocol: Follow activity instructions as provided by Physical Therapy. Dressing Care: May shower in 2 days Discharge Plan Patient/Caregiver Discharge Instructions Activity: ambulate only with your walker and as per physical therapy Diet: Regular Diet Prescriptions: No Action lansoprazole 15 mg capsule,delayed release(DR/EC) 15 mg PO QDAY 0RF folic acid 1 mg tablet See Rx Instructions .ROUTE .COMPLEX Qty: 90 3RF Dose Instruction: TAKE 1 TABLET DAILY Rx Instructions: TAKE 1 TABLET DAILY Symbicort 160-4.5 mcg/actuation HFA aerosol inhaler 2 puff INHALATION BID Qty: 30.6 4RF rivaroxaban [Xarelto] 15 mg tablet See Rx Instructions .ROUTE .COMPLEX 0RF Rx Instructions: 1 tab in evening w/ meal potassium chloride 20 mEq tablet extended release See Rx Instructions .ROUTE .COMPLEX Qty: 90 1RF Dose Instruction: TAKE 1 TABLET BY MOUTH EVERY DAY Rx Instructions: TAKE 1 TABLET BY MOUTH EVERY DAY enalapril maleate 20 mg tablet 20 mg PO DAILY Qty: 90 1RF levothyroxine [Synthroid] 88 mcg tablet See Rx Instructions .ROUTE .COMPLEX Qty: 90 0RF Dose Instruction: TAKE 1 TABLET DAILY Rx Instructions: TAKE 1 TABLET DAILY amlodipine 5 mg tablet 5 mg PO QDAY Qty: 90 0RF magnesium oxide 400 MG tablet 400 mg PO BID Qty: 10 0RF flecainide 50 MG tablet 50 mg PO BID 0RF metoprolol tartrate 100 mg tablet 50 mg PO BID 0RF Rx Instructions: TAKE 1 TABLET BY MOUTH TWICE DAILY [id number] 160 mcg inhaler See Rx Instructions .ROUTE .COMPLEX 0RF Rx Instructions: 160mcg/9mcg/4.8mcg Follow Up Plan Follow up with: Isaías Marks ARNP [Primary Care Provider] - Patient Disposition: Home, Self-Care Prognosis: Fair Rehab Potential: Good I certify that the patient requires SNF services: No Overall status at discharge: patient is progressing back to baseline Discharge Orders: Discharge Order (Routine); Ordered 05/23/21 Ordered By: Trace Davis Discharge Comment: cc: left hip fracture
[2021-05-21] MEDS ORDERED: MAGNESIUM HYDROXIDE 30 ML ORAL.SUSP PO PRN (17:23)
[2021-05-21] MEDS ORDERED: METHOCARBAMOL 750 MG TABLET PO PRN (17:23)
[2021-05-21] MEDS ORDERED: FLEETS ADULT ENEMA PR PRN (17:23)
[2021-05-21] MEDS ORDERED: ONDANSETRON 4 MG ODT TABLET SL PRN (17:23)
[2021-05-21] MEDS ORDERED: POLYETHYLENE GLYCOL 3350 17 GM PACKET PO PRN (17:23)
[2021-05-21] MEDS ORDERED: BISACODYL 10 MG SUPP.RECT PR PRN (17:23)
[2021-05-21] MEDS ORDERED: morphine 4 MG/ML VIAL IV PRN (17:23)
[2021-05-21] MEDS: fentaNYL 100 MCG/2 ML VIAL IV PRN ×4 (18:00→18:23)
--- NOTE | 2021-05-21 18:14 | XRay Report ---
CLINICAL INFORMATION: surgery COMPARISON: None. FINDINGS: Left hip prostheses anatomically aligned. No osseous normality. Mild degenerative change seen in both SI and right hip joints. Soft tissue swelling of the surgical site as expected IMPRESSION: Left hip prostheses in anatomic alignment Interpreted and Authenticated by: Trace Alston 05/21/21
[2021-05-21] MEDS: HYDROcodone/APAP 10/325MG TABLET PO PRN ×2 (19:18→23:41)
[2021-05-21] MEDS: chlordiazePOXIDE 25 MG CAPSULE PO PRN (19:18)
[2021-05-21] MEDS: LACTATED RINGERS 1,000 ML IV SCH ×2 (20:15→20:34)
[2021-05-21] MEDS: SODIUM CHLORIDE 1 GM TABLET PO SCH (20:33)
[2021-05-21] MEDS: SENNOSIDES 1 TABLET PO SCH (20:33)
[2021-05-21] MEDS: ASPIRIN 81 MG TAB.CHEW PO SCH (20:33)
[2021-05-21] MEDS ORDERED: DOCUSATE SODIUM 100 MG CAPSULE PO SCH (21:00)
[2021-05-21] MEDS ORDERED: SENNOSIDES 1 TABLET PO SCH (21:00)
[2021-05-21] MEDS: ceFAZolin 1 GM VIAL IV SCH (23:41)
[2021-05-22] MEDS: chlordiazePOXIDE 25 MG CAPSULE PO PRN ×2 (00:58→07:04)
[2021-05-22] MEDS: 0.9 % SODIUM CHLORIDE 1,000 ML IV SCH (01:00)
[2021-05-22] MEDS: HYDROcodone/APAP 10/325MG TABLET PO PRN ×2 (04:15→15:36)
[2021-05-22] MEDS: LACTATED RINGERS 1,000 ML IV SCH ×2 (04:15→08:58)
[2021-05-22] MEDS: 0.9 % SODIUM CHLORIDE 10 ML SYRINGE IV SCH ×2 (04:16→13:35)
--- NOTE | 2021-05-22 06:59 | Orthopedic Progress Note ---
SUBJECTIVE Subjective Patient information: Note initiated : 05/22/21 at 6:53 am Service Date, if different from initiated Date: [] Patient: Bia Pacheco 66 y/o F admitted on 05/20/21 for fall. Chief Complaint: [s/p left hemiarthroplasty ] Pertinent ROS: 10 point review performed and is negative Constitutional Vitals: Vital Signs Temp Pulse Resp BP Pulse Ox 97.6 F 54 L 16 127/62 93 05/22/21 04:16 05/22/21 04:16 05/22/21 04:16 05/22/21 04:16 05/22/21 04:16 Period Temp Pulse Resp BP Sys/Brooks Pulse Ox Last 24 Hr 96.9 F-98.2 F 54-96 12-23 90-163/50-138 84-100 Intake and Output 05/21/21 05/22/21 05/22/21 21:59 05:59 13:59 Intake Total 1150 400 Output Total 1974 950 Balance -825 -550 Weight 155 lb 6 oz Intake & Output: Intake & Output 05/21/21 05/22/21 05/22/21 21:59 05:59 13:59 Intake Total 1150 400 Output Total 1974 950 Balance -825 -550 Weight 155 lb 6 oz Intake: IV 1150 Sodium Chloride 0.9% 1,000 ml @ 1000 75 mls/hr IV .[id number] [facility] Rx#: [id number] Ancef 2 gm In Dextrose 5% in 50 Water 50 ml @ 100 mls/hr IV PREOP [facility] Rx#:[id number] Oral 400 Output: Urine Catheter Amount 1974 Other: Urine Appearance Clear Clear Uretheral ([place]) Clear Urine Color Pale Pale Uretheral ([place]e) Pale # Bowel Movements 0 OBJ DATA Labs CBC & Chem 7: 05/21/21 05:34 05/21/21 05:34 Labs: Abnormal Lab Results 05/21/21 05/21/21 05/21/21 05:34 05:34 05:34 WBC MCV 102.0 H RDW 11.2 L [place] # (Auto) 1.10 H Absolute Neutrophils POC PT POC INR Sodium 127 L Chloride 92 L Anion Gap Glucose Osmolality 267 L GGT 39 H Urine Mucus 05/20/21 05/19/21 05/19/21 01:25 23:55 23:55 WBC MCV RDW [place] # (Auto) Absolute Neutrophils POC PT 15.5 H POC INR 1.3 H Sodium 129 L Chloride 89 L Anion Gap 18.0 H Glucose 123 H Osmolality GGT Urine Mucus Few A 05/19/21 23:55 WBC 12.7 H MCV RDW 11.2 L [place] # (Auto) Absolute Neutrophils 9.26 H POC PT POC INR Sodium Chloride Anion Gap Glucose Osmolality GGT Urine Mucus Meds: Medications Acetaminophen (Acetaminophen 325 Mg Tablet) 650 mg PO Q6HP PRN; Protocol PRN Reason: Per Pain Protocol/Fever > 101 Hydrocodone Bitart/Acetaminophen (Hydrocodone/Apap 10/325mg Tablet) 0 tab PO Q4HP PRN; Protocol PRN Reason: Per Pain Protocol Last Admin: 05/22/21 04:15 Dose: 2 tab Documented by: Albuterol/Ipratropium (Ipratropium/Albuterol 3 Ml Ampul.Neb) 3 ml NEB Q4HRT PRN PRN Reason: Wheezing Amlodipine Besylate (Amlodipine 5 Mg Tablet) 5 mg PO QDAY [facility] Last Admin: 05/21/21 09:02 Dose: Not Given Documented by: Aspirin (Aspirin 81 Mg Tab.Chew) 81 mg PO BID [facility] Last Admin: 05/21/21 20:33 Dose: 81 mg Documented by: Bisacodyl (Bisacodyl 10 Mg Supp.Rect) 10 mg NC Q2-3DAYS PRN PRN Reason: Constipation Cefazolin Sodium (Cefazolin 1 Gm Vial) 2 gm IV Q8H [facility] Stop: 05/22/21 08:01 Last Admin: 05/21/21 23:41 Dose: 2 gm Documented by: Chlordiazepoxide HCl (Chlordiazepoxide 25 Mg Capsule) 25 mg PO Q4HP PRN PRN Reason: Alcohol Withdrawal Last Admin: 05/22/21 00:58 Dose: 25 mg Documented by: Docusate Sodium (Docusate Sodium 100 Mg Capsule) 100 mg PO BID [facility] Last Admin: 05/21/21 20:33 Dose: 100 mg Documented by: Flecainide Acetate (Flecainide 50 Mg Tablet) 50 mg PO BID [facility] Last Admin: 05/21/21 20:42 Dose: Not Given Documented by: Folic Acid (Folic Acid 1 Mg Tablet) 1 mg PO DAILY [facility] Last Admin: 05/21/21 09:02 Dose: Not Given Documented by: Sodium Chloride (Sodium Chloride 0.9%) 1,000 mls @ 75 mls/hr IV .[id number] [facility] Last Admin: 05/22/21 01:00 Dose: Not Given Documented by: Thiamine HCl 100 mg/ Sodium (Chloride) 51 mls @ 50 mls/hr IV DAILY [facility] Last Infusion: 05/21/21 10:47 Dose: Infused Documented by: Lactated Ringer's (Lactated Ringers) 1,000 mls @ 125 mls/hr IV .Q8H [facility] Last Admin: 05/22/21 04:15 Dose: Not Given Documented by: Iron Carb/Multivit/Regional Agronomist/Folic Acid (Multivit,Ther Iron,Ca,Fa & Min 1 Tablet) 1 tab PO DAILY [facility] Last Admin: 05/21/21 09:02 Dose: Not Given Documented by: Levothyroxine Sodium (Levothyroxine 88 Mcg Tablet) 88 mcg PO QAMAC [facility] Last Admin: 05/21/21 09:02 Dose: Not Given Documented by: Lisinopril (Lisinopril 20 Mg Tablet) 20 mg PO DAILY [facility] Last Admin: 05/21/21 09:03 Dose: Not Given Documented by: Lorazepam (Lorazepam 2 Mg/Ml Vial) 0 mg IV Q4HP PRN; Protocol PRN Reason: Alcohol Withdrawal Magnesium Hydroxide (Magnesium Hydroxide 30 Ml Oral.Susp) 30 ml PO BIDP PRN PRN Reason: Constipation Magnesium Oxide (Magnesium Oxide 400 Mg Tablet) 400 mg PO BID [facility] Last Admin: 05/21/21 20:33 Dose: 400 mg Documented by: Methocarbamol (Methocarbamol 1,000 Mg/10 Ml Vial) 750 mg IV Q6HP PRN PRN Reason: Muscle Spasm Last Admin: 05/21/21 02:31 Dose: 750 mg Documented by: Methocarbamol (Methocarbamol 750 Mg Tablet) 750 mg PO Q6HP PRN PRN Reason: Muscle Spasm Last Admin: 05/21/21 23:41 Dose: 750 mg Documented by: Metoprolol Tartrate (Metoprolol Tartrate 50 Mg Tablet) 100 mg PO BID [facility] Last Admin: 05/21/21 20:33 Dose: 100 mg Documented by: Morphine Sulfate (Morphine 4 Mg/Ml Vial) 0 mg IV Q1HP PRN; Protocol PRN Reason: Per Pain Protocol Last Admin: 05/21/21 21:49 Dose: 4 mg Documented by: Naloxone HCl (Naloxone Hcl 0.4 Mg/Ml Vial) 0.1 mg IV Q2MIN PRN PRN Reason: Opiate Reversal Ondansetron HCl (Ondansetron 4 Mg/2 Ml Vial) 4 mg IV Q6HP PRN PRN Reason: Nausea And Vomiting Last Admin: 05/21/21 12:58 Dose: 4 mg Documented by: Ondansetron HCl (Ondansetron 4 Mg Odt Tablet) 4 mg SL Q4HP PRN; Protocol PRN Reason: Nausea And Vomiting Pantoprazole Sodium (Pantoprazole 40 Mg Tablet) [facility] Last Admin: 05/21/21 09:01 Dose: Not Given Documented by: Budesonide- Formoterol [ Symbicort] 160-4.5 Mcg Inhaler 2 dose INH BID [facility] Last Admin: 05/21/21 20:43 Dose: Not Given Documented by: Polyethylene Glycol (Polyethylene Glycol 3350 17 Gm Packet) 17 gm PO DAILYP PRN PRN Reason: Constipation Potassium Chloride (Potassium Chloride 20 Meq Tablet) [facility] Last Admin: 05/21/21 09:02 Dose: Not Given Documented by: Senna (Sennosides 1 Tablet) 2 tab PO [facility] Last Admin: 05/21/21 20:33 Dose: 2 tab Documented by: Sodium Biphosphate/Sodium Phosphate (Fleets Adult Enema) 1 dose NC Q3-4DAYS PRN PRN Reason: Constipation Sodium Chloride (0.9 % Sodium Chloride 10 Ml Syringe) 10 ml IV Q8 [facility] Last Admin: 05/22/21 04:16 Dose: Not Given Documented by: Sodium Chloride (Sodium Chloride 1 Gm Tablet) 2 gm PO BID [facility] Stop: 05/22/21 09:01 Last Admin: 05/21/21 20:33 Dose: 2 gm Documented by: Throat Lozenges (Benzocaine/Menthol 1 Lozenge) 1 lozenge PO PRN PRN PRN Reason: Sore Throat Zolpidem Tartrate (Zolpidem 5 Mg Tablet) 5 mg PO HSP PRN PRN Reason: Insomnia Last Admin: 05/20/21 23:16 Dose: 5 mg Documented by: A/P Narrative A/P Narrative: Patient seen and examined this am. awake alert, conversant. Has expected postop discomfort but feels it is well managed on current regimen. Endorses ambulation about hallway with nursing staff. Dressing at LLE is clean dry and intact. Both LE are warm, well perfused and neuro intact. WB as tolerated with walker for assistance and PT/ OT Stable from ortho standpoint will defer final dispo to attending hospitalist. Plan is for expected discharge to home today where she states she has spouse for assistance and followup at [facility] in 10-14 days. Time Spent With Patient Time: Total time spent is greater than 50% in coordination of care (as documented) at patient's floor/unit and/or counseling patient:
[2021-05-22] MEDS: POTASSIUM CHLORIDE 20 MEQ TABLET PO SCH (07:04)
[2021-05-22] MEDS: PANTOPRAZOLE 40 MG TABLET PO SCH (07:04)
[2021-05-22] MEDS: LEVOTHYROXINE 88 MCG TABLET PO SCH (07:05)
[2021-05-22] MEDS: ceFAZolin 1 GM VIAL IV SCH (07:05)
--- NOTE | 2021-05-22 07:38 | Operative Note ---
DATE OF OPERATION: 05/21/2021 PRE-OP DIAGNOSIS: Femoral neck fracture, left hip. POST-OP DIAGNOSIS: Femoral neck fracture, left hip. PROCEDURE: Left hip hemiarthroplasty. SURGEON: Trace Davis M.D. HAND ROLLER ENGRAVER SURGEON: Harjinder Puente PA-C. The PA's assistance was required for the safe and efficient completion of the entire case. This providers expertise and technical skill were required throughout the case. The PA assisted with preoperative coordination, intraoperative retraction, limb manipulation, wound closure, dressing application, brace application, as well as post-operative documentation and care coordination. ANESTHESIA: Spinal with LMA assist. ESTIMATED BLOOD LOSS: 150 ml COMPLICATIONS: None noted. SPECIMENS REMOVED: None DRAINS: None IMPLANTS: IMPLANTS: DePuy modular Tony fracture head hip ball 48 mm diameter with a tapered spacer +5, DePuy femoral stem ACTIS DUOFIX hip prosthesis cementless, size 5 standard collar. INDICATIONS: The patient fell and was unable to ambulate. Radiographs have confirmed a displaced femoral neck fracture. The patient was admitted to the hospital and underwent medical clearance. After a long discussion about treatment options, the patient elected to proceed with a hip hemiarthroplasty. The risks and benefits were discussed with the patient in detail including, but not limited to, the risks of anesthesia, problems with the heart or lungs related to anesthesia, infection, compromise or injury to the nerves and blood vessels, deep venous thrombosis, pulmonary embolism, pneumonia, continued pain after surgery, worsening pain or symptoms after surgery, swelling, loss of motion, instability, leg length discrepancy, and need for repeat surgery. DESCRIPTION OF PROCEDURE: The patient was seen in pre-anesthesia waiting room where all questions were answered and the correct side and site were identified and marked. The patient was then brought to the operating room and administered the anesthetic, tranexamic acid, and given pre-operative antibiotics. A time-out was then called. The patient was placed in the lateral decubitus position with all prominences well padded using the Manuel frame and the extremity was prepped and draped in the usual sterile fashion. A standard posterior approach was made. We dissected through the skin and subcutaneous tissue to the deep fascia. The deep fascia was split in line with the incision and a Charnley retractor was placed. We exposed, tagged, and incised the short external rotators and piriformis tendon and retracted them posteriorly to help protect the sciatic nerve which was palpated throughout the case. We then performed a T-capsulotomy and tagged the capsule edges. The hip was then dislocated and a femoral neck osteotomy was performed to the pre-surgical templated level off the lesser trochanter. The head was removed and sized. The acetabulum was inspected and did not have a significant degree of osteoarthritis. All bone and fracture debris was removed. Our attention was now turned to the femur. We placed retractors for visualization, internally rotated the femur, and established intramedullary access. We incrementally broached our stem to a stable platform medial, lateral, and rotationally with the appropriate version. We then performed a calcar reaming off the broach. Trials were then placed and optimized for leg length, soft tissue tension, and stability. Best stability, length, and offset characteristics were obtained with these sizes. We removed all trials and impacted the femoral stem to its broached location and placed the head. Final reduction was performed. Again, good stability, leg length, and offset characteristics were noted. We irrigated with three liters of antibiotic saline. We closed the capsule with #2 FiberWire. We closed the fascia with a combination of #1 Strata-fix and #0 Vicryl. We closed the subcutaneous tissue and skin in layers out to samantha on the skin. A sterile pressure dressing and abduction wedge was applied. All needle and sponge counts were correct. The patient was transferred to the recovery room in stable condition. HUGO:justice Job ID: [id number] Doc ID: [id number] Randa Davis MD
--- NOTE | 2021-05-22 07:41 | Internal Med Progress Note ---
SUBJECTIVE Subjective Patient information: Note initiated : 05/22/21 at 7:37 am Service Date, if different from initiated Date: [] Patient: Bia Pacheco a 66 y/o F admitted on 05/20/21 for fall. Chief Complaint: [] Interval history: History of present illness: Ms. Pacheco is a 66 year old F history of atrial fibrillation's on Xarelto, COPD, essential HTN, hypothyroidism, presenting with fall with subsequent left hip fracture. There was no prior similar episode. Last night when patient was trying to put pajama on, she fell and landed on her left side. She did not have any syncope loss of consciousness shortness of breath chest pain palpitations lightheadedness. She is coming of 10 out of 10 left lateral hip sharp constant pain without radiations. She was being brought to the ED for further evaluations. Labs significant for mild leukocytosis with WBC 12.7. Serum sodium 129. He x-ray showing displaced acute subcapital fracture of the left hip. Chronic alcohol user, said " I drink too much per day". 05/21 Poor sleep because of hip discomfort from fracture. Has some nausea from medications. Otherwise no new complaints. 05/22 Patient status post ORIF. No overnight event or new complaints. Review of Systems: denies headache/fever/chills/nausea/vomiting/chest or abdominal pain/cough/dyspnea/diarrhea. Otherwise see above. Constitutional Vitals: Vital Signs Temp Pulse Resp BP Pulse Ox 97.6 F 54 L 16 127/62 93 05/22/21 04:16 05/22/21 04:16 05/22/21 04:16 05/22/21 04:16 05/22/21 04:16 Period Temp Pulse Resp BP Sys/Brooks Pulse Ox Last 24 Hr 96.9 F-98.2 F 54-96 12-23 90-163/50-138 84-100 Intake and Output 05/21/21 05/22/21 05/22/21 21:59 05:59 13:59 Intake Total 1150 400 Output Total 1974 950 Balance -825 -550 Weight 70.477 kg Intake & Output: Intake & Output 05/21/21 05/22/21 05/22/21 21:59 05:59 13:59 Intake Total 1150 400 Output Total 1974 950 Balance -825 -550 Weight 70.477 kg Intake: IV 1150 Sodium Chloride 0.9% 1,000 ml @ 1000 75 mls/hr IV .[id number] [facility] Rx#: [id number] Ancef 2 gm In Dextrose 5% in 50 Water 50 ml @ 100 mls/hr IV PREOP [facility] Rx#:[id number] Oral 400 Output: Urine Catheter Amount 1975 950 Other: Urine Appearance Clear Clear Uretheral (Auguste) Clear Urine Color Pale Pale Uretheral (Auguste) Pale # Bowel Movements 0 Exam: General: Alert, Awake, No acute Distress Eyes/N/T: EOMI, Head/Neck: neck supple, CV: RRR, No murmurs, Pulm: Clear b/l, no wheezing/rhonchi/rales Abd: soft, nontender, +BS x4 Ext: no clubbing/cyanosis/edema Neuro: Alert, no focal deficits, moves all extremities, Skin: warm/dry OBJ DATA Labs CBC & Chem 7: 05/21/21 05:34 05/22/21 05:53 Labs: Abnormal Lab Results 05/21/21 05/21/21 05/21/21 05:34 05:34 05:34 WBC MCV 102.0 H RDW 11.2 L [place] # (Auto) 1.10 H Absolute Neutrophils POC PT POC INR Sodium 127 L Chloride 92 L Anion Gap Glucose Osmolality 267 L GGT 39 H Urine Mucus 05/20/21 05/19/21 05/19/21 01:25 23:55 23:55 WBC MCV RDW [place] # (Auto) Absolute Neutrophils POC PT 15.5 H POC INR 1.3 H Sodium 129 L Chloride 89 L Anion Gap 18.0 H Glucose 123 H Osmolality GGT Urine Mucus Few A 05/19/21 23:55 WBC 12.7 H MCV RDW 11.2 L [place] # (Auto) Absolute Neutrophils 9.26 H POC PT POC INR Sodium Chloride Anion Gap Glucose Osmolality GGT Urine Mucus Meds: Medications Acetaminophen (Acetaminophen 325 Mg Tablet) 650 mg PO Q6HP PRN; Protocol PRN Reason: Per Pain Protocol/Fever > 101 Hydrocodone Bitart/Acetaminophen (Hydrocodone/Apap 10/325mg Tablet) 0 tab PO Q4HP PRN; Protocol PRN Reason: Per Pain Protocol Last Admin: 05/22/21 04:15 Dose: 2 tab Documented by: Albuterol/Ipratropium (Ipratropium/Albuterol 3 Ml Ampul.Neb) 3 ml NEB Q4HRT PRN PRN Reason: Wheezing Amlodipine Besylate (Amlodipine 5 Mg Tablet) 5 mg PO QDAY [facility] Last Admin: 05/21/21 09:02 Dose: Not Given Documented by: Aspirin (Aspirin 81 Mg Tab.Chew) 81 mg PO BID [facility] Last Admin: 05/21/21 20:33 Dose: 81 mg Documented by: Bisacodyl (Bisacodyl 10 Mg Supp.Rect) 10 mg SC Q2-3DAYS PRN PRN Reason: Constipation Cefazolin Sodium (Cefazolin 1 Gm Vial) 2 gm IV Q8H [facility] Stop: 05/22/21 08:01 Last Admin: 05/22/21 07:05 Dose: 2 gm Documented by: Chlordiazepoxide HCl (Chlordiazepoxide 25 Mg Capsule) 25 mg PO Q4HP PRN PRN Reason: Alcohol Withdrawal Last Admin: 05/22/21 07:04 Dose: 25 mg Documented by: Docusate Sodium (Docusate Sodium 100 Mg Capsule) 100 mg PO BID [facility] Last Admin: 05/21/21 20:33 Dose: 100 mg Documented by: Flecainide Acetate (Flecainide 50 Mg Tablet) 50 mg PO BID [facility] Last Admin: 05/21/21 20:42 Dose: Not Given Documented by: Folic Acid (Folic Acid 1 Mg Tablet) 1 mg PO DAILY [facility] Last Admin: 05/21/21 09:02 Dose: Not Given Documented by: Sodium Chloride (Sodium Chloride 0.9%) 1,000 mls @ 75 mls/hr IV .[id number] [facility] Last Admin: 05/22/21 01:00 Dose: Not Given Documented by: Thiamine HCl 100 mg/ Sodium (Chloride) 51 mls @ 50 mls/hr IV DAILY [facility] Last Infusion: 05/21/21 10:47 Dose: Infused Documented by: Lactated Ringer's (Lactated Ringers) 1,000 mls @ 125 mls/hr IV .Q8H [facility] Last Admin: 05/22/21 04:15 Dose: Not Given Documented by: Iron Carb/Multivit/Warehouse Checker/Folic Acid (Multivit,Ther Iron,Ca,Fa & Min 1 Tablet) 1 tab PO DAILY [facility] Last Admin: 05/21/21 09:02 Dose: Not Given Documented by: Levothyroxine Sodium (Levothyroxine 88 Mcg Tablet) 88 mcg PO QAMAC [facility] Last Admin: 05/22/21 07:05 Dose: 88 mcg Documented by: Lisinopril (Lisinopril 20 Mg Tablet) 20 mg PO DAILY [facility] Last Admin: 05/21/21 09:03 Dose: Not Given Documented by: Lorazepam (Lorazepam 2 Mg/Ml Vial) 0 mg IV Q4HP PRN; Protocol PRN Reason: Alcohol Withdrawal Magnesium Hydroxide (Magnesium Hydroxide 30 Ml Oral.Susp) 30 ml PO BIDP PRN PRN Reason: Constipation Magnesium Oxide (Magnesium Oxide 400 Mg Tablet) 400 mg PO BID [facility] Last Admin: 05/21/21 20:33 Dose: 400 mg Documented by: Methocarbamol (Methocarbamol 1,000 Mg/10 Ml Vial) 750 mg IV Q6HP PRN PRN Reason: Muscle Spasm Last Admin: 05/21/21 02:31 Dose: 750 mg Documented by: Methocarbamol (Methocarbamol 750 Mg Tablet) 750 mg PO Q6HP PRN PRN Reason: Muscle Spasm Last Admin: 05/21/21 23:41 Dose: 750 mg Documented by: Metoprolol Tartrate (Metoprolol Tartrate 50 Mg Tablet) 100 mg PO BID [facility] Last Admin: 05/21/21 20:33 Dose: 100 mg Documented by: Morphine Sulfate (Morphine 4 Mg/Ml Vial) 0 mg IV Q1HP PRN; Protocol PRN Reason: Per Pain Protocol Last Admin: 05/21/21 21:49 Dose: 4 mg Documented by: Naloxone HCl (Naloxone Hcl 0.4 Mg/Ml Vial) 0.1 mg IV Q2MIN PRN PRN Reason: Opiate Reversal Ondansetron HCl (Ondansetron 4 Mg/2 Ml Vial) 4 mg IV Q6HP PRN PRN Reason: Nausea And Vomiting Last Admin: 05/21/21 12:58 Dose: 4 mg Documented by: Ondansetron HCl (Ondansetron 4 Mg Odt Tablet) 4 mg SL Q4HP PRN; Protocol PRN Reason: Nausea And Vomiting Pantoprazole Sodium (Pantoprazole 40 Mg Tablet) [facility] Last Admin: 05/22/21 07:04 Dose: 40 mg Documented by: Budesonide- Formoterol [ Symbicort] 160-4.5 Mcg Inhaler 2 dose INH BID [facility] Last Admin: 05/21/21 20:43 Dose: Not Given Documented by: Polyethylene Glycol (Polyethylene Glycol 3350 17 Gm Packet) 17 gm PO DAILYP PRN PRN Reason: Constipation Potassium Chloride (Potassium Chloride 20 Meq Tablet) 20 meq PO QAMCC [facility] Last Admin: 05/22/21 07:04 Dose: 20 meq Documented by: Senna (Sennosides 1 Tablet) 2 tab PO HS [facility] Last Admin: 05/21/21 20:33 Dose: 2 tab Documented by: Sodium Biphosphate/Sodium Phosphate (Fleets Adult Enema) 1 dose SC Q3-4DAYS PRN PRN Reason: Constipation Sodium Chloride (0.9 % Sodium Chloride 10 Ml Syringe) 10 ml IV Q8 [facility] Last Admin: 05/22/21 04:16 Dose: Not Given Documented by: Sodium Chloride (Sodium Chloride 1 Gm Tablet) 2 gm PO BID [facility] Stop: 05/22/21 09:01 Last Admin: 05/21/21 20:33 Dose: 2 gm Documented by: Throat Lozenges (Benzocaine/Menthol 1 Lozenge) 1 lozenge PO PRN PRN PRN Reason: Sore Throat Zolpidem Tartrate (Zolpidem 5 Mg Tablet) 5 mg PO HSP PRN PRN Reason: Insomnia Last Admin: 05/20/21 23:16 Dose: 5 mg Documented by: A/P Narrative A/P Narrative: Assessment and Plans: *Closed displaced left hip fracture: s/p ORIF (05/21) *Essential HTN: *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: *Atrial fibrillation: on Xarelto/Flecainide/Metoprolol tartrate *Tobacco abuse: *Chronic alcoholism: *Hyponatremia: *COPD: Continue Symbicort, DuoNEB NEB PRN wheezing *GERD: P: -Dr. Davis consulted for surgery scheduled for today -Continue home Metoprolol/Lisinopril/Amlodipine -Continue Flecainide -Physical therapy / Occupational therapy -Watch for symptoms of alcohol withdraw post-surgically and either CIWA protocol or beer therapy -Shoeshiner patient on quitting cigarette smoking, provide Nicotine replacement th erapy if needed -d/c NS, osmol and urine sodium and TSH pending -ppx: SCDs & post-op per ortho on ASA 81mg bid, will need to transition back to xaralto when ortho ok / home ppi Code status: Documentation Writer Spent With Patient Time: Total time spent is greater than 50% in coordination of care (as documented) at patient's floor/unit and/or counseling patient:
[2021-05-22 07:48] LABS: Blood Urea Nitrogen 15 mg/dL (8-23); Calcium 8.4 mg/dL (8.6-10.4); Carbon Dioxide 26 mmol/L (22-30); Chloride 98 mmol/L (96-108); Glomerular Filtration Rate 77; Glucose 147 mg/dL (70-105)
[2021-05-22] MEDS: LISINOPRIL 20 MG TABLET PO SCH (08:44)
[2021-05-22] MEDS: FLECAINIDE 50 MG TABLET PO SCH (08:44)
[2021-05-22] MEDS: amLODIPine 5 MG TABLET PO SCH (08:44)
[2021-05-22] MEDS: ASPIRIN 81 MG TAB.CHEW PO SCH (08:44)
[2021-05-22] MEDS: MULTIVIT,THER IRON,CA,FA & MIN 1 TABLET PO SCH (08:44)
[2021-05-22] MEDS: MAGNESIUM OXIDE 400 MG TABLET PO SCH (08:45)
[2021-05-22] MEDS: METOPROLOL TARTRATE 50 MG TABLET PO SCH (08:45)
[2021-05-22] MEDS: DOCUSATE SODIUM 100 MG CAPSULE PO SCH (08:45)
[2021-05-22] MEDS: Budesonide-Formoterol [Symbicort] 160-4.5 mcg Inhaler INH SCH (08:46)
[2021-05-22] MEDS: THIAMINE 100 MG in 0.9 % SODIUM CHLORIDE 50 ML IV SCH (08:46)
[2021-05-22] MEDS: FOLIC ACID 1 MG TABLET PO SCH (08:46)
[2021-05-22] MEDS: SODIUM CHLORIDE 1 GM TABLET PO SCH (08:46)
--- NOTE | 2021-05-22 10:08 | Discharge Summary ---
Discharge Provider Provider Patient information: Note initiated : 05/22/21 at 10:08 am Service Date, if different from initiated Date: [] Patient: Bia Pacheco 66 y/o F admitted on 05/20/21 for fall. Chief Complaint: [] Date of admission: 05/20/21 00:53 Discharge date: 05/22/21 Primary care physician: AYSE Pedersen Consults: 05/19/21 Consult to Physician [CONS] Stat Comment: Consulting Provider: Trace Davis Reason For Exam: Physician to Consult Consult to Physician [CONS] Stat Comment: Consulting Provider: Saúl Sewell Reason For Exam: Physician to Consult Discharge Meds Discharge Medications Home Medications magnesium oxide 400 mg (241.3 mg magnesium) tablet 400 mg PO BID #10 tab 11/03/16 [Rx Confirmed 05/20/21 Last Taken 05/19/21 18:00] flecainide 50 mg tablet 50 mg PO BID 08/31/18 [History Confirmed 05/20/21 Last Taken 05/19/21 18:00] folic acid 1 mg tablet See Rx Instructions .ROUTE .COMPLEX #90 tablet 08/11/19 [Rx Confirmed 05/20/21 Last Taken 05/19/21 07:00] lansoprazole 15 mg capsule,delayed release 15 mg PO QDAY 09/12/19 [History Confirmed 05/20/21 Last Taken 05/19/21 07:00] budesonide-formoterol HFA 160 mcg-4.5 mcg/actuation aerosol inhaler (Symbicort) 2 puff INHALATION BID #30.6 g 07/09/20 [Rx Confirmed 05/20/21 Last Taken Unknown] potassium chloride 20 mEq tablet,extended release See Rx Instructions .ROUTE .COMPLEX #90 tab 01/17/21 [Rx Confirmed 05/20/21 Last Taken 05/19/21 07:00] amlodipine 5 mg tablet 5 mg PO QDAY #90 tab 03/04/21 [Rx Confirmed 05/20/21 Last Taken 05/19/21 07:00] enalapril maleate 20 mg tablet 20 mg PO DAILY #90 tab 03/04/21 [Rx Confirmed 05/20/21 Last Taken 05/19/21 07:00] levothyroxine 88 mcg tablet (Synthroid) See Rx Instructions .ROUTE .COMPLEX #90 unknown measurement unit code: tablet 08/30/21 [Rx Confirmed 05/20/21 Last Taken 05/19/21 07:00] metoprolol tartrate 100 mg tablet 50 mg PO BID 05/19/21 [History Confirmed 05/20/21 Last Taken 05/19/21 18:00] tymvryifbc-rvehdzmo-ssbprfisya See Rx Instructions .ROUTE .COMPLEX 05/20/21 [History Confirmed 05/20/21 Last Taken 05/19/21 18:00] hydrocodone 10 mg-acetaminophen 325 mg tablet 1 - 2 tab PO Q4H PRN #60 tab 05/21/21 [Rx Last Taken Unknown] COURSE Hospital Course Hospital course: History of present illness: Ms. Pacheco is a 66 year old F history of atrial fibrillation's on Xarelto, COPD, essential HTN, hypothyroidism, presenting with fall with subsequent left hip fracture. There was no prior similar episode. Last night when patient was trying to put pajama on, she fell and landed on her left side. She did not have any syncope loss of consciousness shortness of breath chest pain palpitations lightheadedness. She is coming of 10 out of 10 left lateral hip sharp constant pain without radiations. She was being brought to the ED for further evaluations. Labs significant for mild leukocytosis with WBC 12.7. Serum sodium 129. He x-ray showing displaced acute subcapital fracture of the left hip. Chronic alcohol user, said " I drink too much per day". 05/21 Poor sleep because of hip discomfort from fracture. Has some nausea from medications. Otherwise no new complaints. 05/22 Patient status post ORIF. No overnight event or new complaints. Assessment and Plans: *Closed displaced left hip fracture: s/p ORIF (05/21) *Essential HTN: *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: *Atrial fibrillation: on Xarelto/Flecainide/Metoprolol tartrate *Tobacco abuse: *Chronic alcoholism: *Hyponatremia: *COPD: Continue Symbicort, DuoNEB NEB PRN wheezing *GERD: Discharge diagnosis: Hip fracture Secondary discharge diagnosis: A. fib hypertension tobacco abuse alcohol use COPD GERD Time Spent with Patient Time attestation: Total time spent providing and/or coordinating discharge services: Time spent: Greater than 30 minutes EXAM Constitutional Vitals: Temp Pulse Resp BP Pulse Ox 96.6 F L 81 18 98/61 98 05/22/21 07:57 05/22/21 07:57 05/22/21 08:06 05/22/21 07:57 05/22/21 07:57 Discharge Data Data Completed and Pending Labs on day of discharge: Labs from last 24 hours 05/22/21 05:53 Sodium 131 L Potassium 4.8 Chloride 98 Carbon Dioxide 26 Anion Gap 7.0 L BUN 15 Creatinine 0.8 GFR Calculation 77 Glucose 147 H Calcium 8.4 L Discharge Plan Patient/Caregiver Discharge Instructions Activity: ambulate only with your walker and as per physical therapy Diet: Regular Diet Prescriptions: New hydrocodone-acetaminophen 10-325 mg Tablet 1 - 2 tab PO Q4H PRN (Reason: Pain) Qty: 60 0RF Continued lansoprazole 15 mg capsule,delayed release(DR/EC) 15 mg PO QDAY 0RF folic acid 1 mg tablet See Rx Instructions .ROUTE .COMPLEX Qty: 90 3RF Dose Instruction: TAKE 1 TABLET DAILY Rx Instructions: TAKE 1 TABLET DAILY Symbicort 160-4.5 mcg/actuation HFA aerosol inhaler 2 puff INHALATION BID Qty: 30.6 4RF rivaroxaban [Xarelto] 15 mg tablet See Rx Instructions .ROUTE .COMPLEX 0RF Rx Instructions: 1 tab in evening w/ meal potassium chloride 20 mEq tablet extended release See Rx Instructions .ROUTE .COMPLEX Qty: 90 1RF Dose Instruction: TAKE 1 TABLET BY MOUTH EVERY DAY Rx Instructions: TAKE 1 TABLET BY MOUTH EVERY DAY enalapril maleate 20 mg tablet 20 mg PO DAILY Qty: 90 1RF levothyroxine [Synthroid] 88 mcg tablet See Rx Instructions .ROUTE .COMPLEX Qty: 90 0RF Dose Instruction: TAKE 1 TABLET DAILY Rx Instructions: TAKE 1 TABLET DAILY amlodipine 5 mg tablet 5 mg PO QDAY Qty: 90 0RF magnesium oxide 400 MG tablet 400 mg PO BID Qty: 10 0RF flecainide 50 MG tablet 50 mg PO BID 0RF metoprolol tartrate 100 mg tablet 50 mg PO BID 0RF Rx Instructions: TAKE 1 TABLET BY MOUTH TWICE DAILY telwjytfwh-uiakxbgb-fgakjygfcg 160 mcg inhaler See Rx Instructions .ROUTE .COMPLEX 0RF Rx Instructions: 160mcg/9mcg/4.8mcg Other Ambulatory Orders: Physical Therapy DC - JOSE (Routine) Location: None Selected Ordered By: Trace Davis Toilet Riser Discharge Order (ONCE) Location: None Selected Ordered By: Trace Davis Walker (ONCE) Location: None Selected Ordered By: Trace Davis Follow Up Plan Follow up with: Isaías Marks ARNP [Primary Care Provider] - Trace Davis MD [Physician] - Patient Disposition: Home Health Service Prognosis: Fair Rehab Potential: Good I certify that the patient requires SNF services: No Overall status at discharge: patient is progressing back to baseline Discharge Orders: Discharge Order (Routine); Ordered 05/23/21 Ordered By: Trace Davis Discharge Comment: cc: left hip fracture
[2021-05-22 12:33] LABS: Sodium, Urine Random 22 mmol/L
[2021-05-22 12:48] LABS: Osmolality,Urine 318 mOSM/kg (80-1000)
== END 2021-05-22 16:53 | disposition home health service (06) | DRG 522 ==
LOC: ED 22:45 → MEDSUR 05-20 00:53
PROVIDERS: ADMIT Internal Medicine; ATTEND Orthopaedic Surgery Sports Medicine

== ENCOUNTER 2022-01-14 16:38 | Inpatient (IN) ==
[2022-01-14] MEDS ORDERED: IOPAMIDOL 100 ML BOTTLE IV ONE (16:39)
[2022-01-14] MEDS ORDERED: LACTATED RINGERS 1,000 ML IV ONE (16:56)
[2022-01-14] MEDS ORDERED: 0.9 % SODIUM CHLORIDE 250 ML IV SCH (17:00)
[2022-01-14] MEDS: ONDANSETRON 4 MG/2 ML VIAL IV ONE ×2 (17:22→19:50)
[2022-01-14 17:24] LABS: POC Calcium, Ionized 1.16 (1.16-1.32); POC Creatinine 0.8 (0.6-1.2); POC Potassium 4.1 (3.3-5.1)
[2022-01-14 18:20] LABS: Basophils # (Auto) 0.05 K/mcL (0.00-0.30); Basophils % (Auto) 0.4 % (0.0-2.0); Eosinophils # (Auto) 0.12 K/mcL (0.00-0.70); Eosinophils % (Auto) 1.1 % (0.0-7.0); Hematocrit 42.5 % (34.1-44.9); Hemoglobin 14.8 g/dL (11.2-15.7); Lymphocytes # (Auto) 1.12 K/mcL (1.50-4.80); Lymphocytes % (Auto) 9.9 % (15.5-49.0); Mean Cell Volume 98.6 fL (80.0-100.0); Mean Corpuscular HGB Conc 34.8 g/dL (31.0-36.0); Mean Platelet Volume 9.8 fL (7.4-10.4); Monocytes # (Auto) 0.57 K/mcL (0.10-0.90); Monocytes % (Auto) 5.1 % (1.0-12.0); Neutrophils % (Auto) 83.2 % (38.0-78.0); Platelet Count 222 K/mcL (140-440); RBC 4.31 M/mcL (3.59-5.38); Red Cell Distribution Width 12.2 % (11.5-14.5); WBC 11.3 K/mcL (4.5-11.0)
[2022-01-14 18:34] LABS: Prothrombin Time 13.4 sec (11.9-14.5)
[2022-01-14 18:45] LABS: ALT/SGPT 15 U/L (<40); AST/SGOT 20 U/L (<32); Alkaline Phosphatase 109 U/L (39-117); Bilirubin,Direct < 0.2 mg/dL (0-0.3); Bilirubin,Total 0.5 mg/dL (0.1-1.0); Globulin 2.6 gm/dL (2.2-3.7)
--- NOTE | 2022-01-14 18:52 | Cat Scan Report ---
INDICATION: gi bleed, lower abdominal pain COMPARISON: None. TECHNIQUE: Axial images were obtained through the abdomen and pelvis. Sagittally and coronally reformatted images. Precontrast enhanced images were obtained.90 mL Isovue 370 injected intravenously. Arterial and delayed phase imaging performed FINDINGS: Lung bases:Negative. No pulmonary parenchymal nodule. No pleural fluid or pericardial fluid Liver:Negative. No focal intrahepatic mass. No focal abnormality. Liver contour is smooth. No evidence for cirrhosis Gallbladder, bilary:Calcified gallstone or gallstones in the dependent portion of the gallbladder lumen. No gallbladder wall thickening or pericholecystic fluid. No dilated bile ducts Spleen:No splenomegaly. Normal enhancement of splenic and portal veins. Pancreas:No pancreatic mass. No peripancreatic abnormality Adrenal glands:Negative Kidneys,ureters,bladder:No solid renal mass. No hydronephrosis. No obstructing or nonobstructing calculi. No hydroureter. No ureteral calculus. No bladder stone. No detectable bladder mass. Gastrointestinal:Diffusely abnormal colon. Sigmoid colon is suboptimally evaluated due to beam hardening artifact from left total hip arthroplasty. Proximal sigmoid colon, descending colon, and transverse colon are abnormal. There is wall thickening and mucosal edema. There is pericolonic inflammatory change. Appearance is consistent with colitis. There is no detectable mass. There is no contrast extravasation or pooling. Negative small bowel. No mechanical small bowel obstruction. No bowel wall thickening. No focal abnormality. No contrast pooling or extravasation Negative stomach and duodenum. No focal abnormality. Appendix: The appendix is not well visualized. No evidence for appendicitis Vascular:There is calcification of the abdominal aorta. No abdominal aortic aneurysm. Common iliac arteries and external iliac arteries are patent and normal. Celiac trunk and superior mesenteric artery are negative. No stenosis. Renal arteries are normal bilaterally Lymphatic:No pathologic retroperitoneal or mesenteric adenopathy Mesentery, peritoneum: No intra-abdominal abscess. There is mild free intraperitoneal fluid within the pelvis. Reproductive:Previous hysterectomy. No adnexal mass Musculoskeletal:Multilevel degenerative disc disease. No lumbar compression fractures. Sacrum and pelvis are negative. Previous left total hip arthroplasty No abdominal wall or inguinal hernia IMPRESSION: 1. CT appearance consistent with colitis involving the transverse colon, descending colon, and portions of the sigmoid colon 2. Mild free fluid within the pelvis 3. Previous hysterectomy 4. Cholelithiasis 5. Atherosclerotic calcification of the abdominal aorta. No abdominal aortic aneurysm The exam was performed using radiation dose optimization techniques including, but not limited to, automated exposure control, adjustment of the mA and/or kV according to patient size and use of iterative reconstruction technique. Interpreted and Authenticated by: Trace Churchill 01/14/22
[2022-01-14 19:38] LABS: Appearance,Urine CLEAR (Clear); Bilirubin,Urine Negative (Negative); Color,Urine COLORLESS; Culture Indicated,Urine No; Glucose,Urine (UA) Negative (Negative); Ketones,Urine Negative (Negative); Leukocyte Esterase,Urine Negative /uL (Negative); Nitrate,Urine Negative (Negative); Protein,Urine Negative (Negative); Specific Gravity,Urine 1.015 (1.000-1.035); Urine Blood Negative (Negative); Urobilinogen,Urine Negative
--- NOTE | 2022-01-14 20:30 | Emergency Department Note ---
HPI General Chief complaint: Rectal Bleed Stated complaint: rectal bleed Time Seen by Provider: 01/14/22 16:56 Source: patient Mode of arrival: ambulatory Limitations: no limitations History of Present Illness HPI Narrative: Narrative: This is a 66-year-old female with a past medical history of atrial fibrillation, on Xarelto who presents with abdominal pain and rectal bleeding. Her symptoms started after eating lunch she reported pain about 30 minutes after and associated bright red blood per rectum. She reports her pain is mostly in the left lower quadrant. She reports she has had a history of lower GI bleed in the past that required endoscopic intervention. She reports this was 3 or 4 years ago when she was transferred to [facility] for this. Related Data Home Medications Medication Instructions Recorded Confirmed flecainide 50 mg tablet 50 mg PO BID 08/31/18 01/14/22 lansoprazole 15 mg capsule,delayed 15 mg PO QDAY 09/12/19 01/14/22 release metoprolol tartrate 100 mg tablet 50 mg PO BID 12/19/21 01/14/22 Previous Rx's Medication Instructions Recorded magnesium oxide 400 mg (241.3 mg 400 mg PO BID #10 tabs 11/03/16 magnesium) tablet folic acid 1 mg tablet See Rx Instructions .Route 08/11/19 .COMPLEX #90 tabs budesonide-formoterol HFA 160 2 puff inhalation BID #30.6 grams 08/12/21 mcg-4.5 mcg/actuation aerosol inhaler (Symbicort) enalapril maleate 20 mg tablet 20 mg PO DAILY #90 tabs 09/02/21 amlodipine 5 mg tablet 5 mg PO QDAY #90 tabs 11/25/21 levothyroxine 88 mcg tablet See Rx Instructions .Route 11/25/21 (Synthroid) .COMPLEX ##90 rivaroxaban 15 mg tablet (Xarelto) 15 mg PO QDAY #90 tabs 12/19/21 potassium chloride 20 mEq See Rx Instructions .Route 01/03/22 tablet,extended release .COMPLEX #90 tabs Allergies Allergy/AdvReac Type Severity Reaction Status Date / Time No Known Drug Allergies Allergy Verified 01/14/22 16:42 Review of Systems ROS ROS Narrative: Narrative: All systems ED: reviewed and negative except as stated. 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) Alcoholism, chronic (Chronic) 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, acquired (Chronic) Hypertension, essential (Chronic) COPD with emphysema (Chronic) Chronic anticoagulation (Chronic) Atrial fibrillation (Chronic) Macrocytosis (Chronic) Medical History (Updated 01/14/22 @ 23:24 by Niko Alba MD) Alcoholism, chronic Alkaline phosphatase elevation Allergic rhinitis Anxiety Atrial fibrillation Chronic anticoagulation Xarelto - for a-fib Cigarette smoker COPD with emphysema DDD (degenerative disc disease), cervical Dysphagia Erythrocytosis Facial swelling Fatigue Gastric ulcer (~2012) Hyperlipidemia Hypertension, essential Hypokalemia Hypomagnesemia 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, acquired Ischemic colitis 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 Alert. No distress. HEENT: NCAT PERRL EOMI. No conjunctivitis. Membranes moist. Neck: Supple, trachea midline Cardiovascular: RRR. No murmur. No rubs. No gallops. Respiratory: No respiratory distress. Breath sounds equal. Lungs clear. Gastrointestinal: Soft. Tenderness to palpation left lower quadrant there is no guarding rigidity or other peritoneal signs Rectal: Bright red blood, no appreciable hemorrhoids Musculoskeletal: No pain. No soft tissue swelling. Good ROM. No signs injury Skin: Warm. Dry. No rash Neurologic: Alert and oriented x3 moves all extremities equally and fully, speech is fluent face is symmetric General Limitations: no limitations Course Vital Signs Vital signs: Vital Signs Temperature 97.2 F 01/14/22 16:39 Pulse Rate 71 01/14/22 16:39 Respiratory Rate 18 01/14/22 16:39 Blood Pressure 136/69 01/14/22 16:39 Pulse Oximetry (%) 97 01/14/22 16:39 Oxygen Delivery Method 01/14/22 16:39 Temperature 98.9 F 01/14/22 21:55 Pulse Rate 81 01/14/22 21:55 Respiratory Rate 18 01/14/22 21:55 Blood Pressure 133/71 01/14/22 21:55 Pulse Oximetry (%) 94 01/14/22 21:55 Oxygen Delivery Method 01/14/22 21:55 MDM MDM Narrative Medical decision making narrative: Narrative: Patient presents with bright red blood and lower abdominal pain. She did have gross blood on her rectal exam. Her hemoglobin and vital signs are stable. Patient is on Xarelto. Her CT scan is concerning for colitis in the transverse descending and sigmoid colon. Her lactate is 1.0. She continues to have bright red bowel movements while in the emergency department. I have spoke with Dr. Holliday who will scope the patient tomorrow the patient is agreeable for admission the hospitalist is agreeable to admit the patient. Lab Data Result diagrams: 01/14/22 17:15 Labs: Lab Results 01/14/22 01/14/22 01/14/22 Range/Units 17:15 17:15 17:15 WBC 11.3 H (4.5-11.0) K/mcL RBC 4.31 (3.59-5.38) M/mcL Hgb 14.8 (11.2-15.7) g/dL Hct 42.5 (34.1-44.9) % POC Hct (36-48) MCV 98.6 (80.0-100.0) fL MCH 34.3 H (26.0-34.0) pg MCHC 34.8 (31.0-36.0) g/dL RDW 12.2 (11.5-14.5) % Plt Count 222 (140-440) K/mcL MPV 9.8 (7.4-10.4) fL Immature Gran % (Auto) 0.3 (0.0-0.5) % Neut % (Auto) 83.2 H (38.0-78.0) % Lymph % (Auto) 9.9 L (15.5-49.0) % [place] % (Auto) 5.1 (1.0-12.0) % Eos % (Auto) 1.1 (0.0-7.0) % Baso % (Auto) 0.4 (0.0-2.0) % Lymph # (Auto) 1.12 L (1.50-4.80) K/mcL [place] # (Auto) 0.57 (0.10-0.90) K/mcL Eos # (Auto) 0.12 (0.00-0.70) K/mcL Baso # (Auto) 0.05 (0.00-0.30) K/mcL Immature Gran # 0.03 (0.00-0.05) K/mcl Absolute Neutrophils 9.42 H (1.80-8.00) K/mcL PT 13.4 (11.9-14.5) sec INR 1.0 (0.9-1.1) POC VBG pH (7.32-7.42) POC VBG pCO2 at Temp (41-51) POC VBG pO2 (25-40) POC VBG HCO3 (24-28) POC VBG Total CO2 (25-29) POC Venous O2 Sat (40-70) POC VBG Base Excess (-2-2) VBG Lactic Acid (0.5-2) POC Sodium (133-145) POC Potassium (3.3-5.1) POC Chloride (96-108) POC Total CO2 (22-30) POC BUN (6-20) POC Creatinine (0.6-1.2) POC Glucose (70-105) POC WB Ioniz Calcium (1.16-1.32) Total Bilirubin 0.5 (0.1-1.0) mg/dL Direct Bilirubin < 0.2 (0-0.3) mg/dL AST 20 (<32) U/L ALT 15 (<40) U/L Alkaline Phosphatase 109 (39-117) U/L Total Protein 6.6 (5.9-8.4) gm/dL Albumin 4.0 (3.2-5.2) gm/dL Globulin 2.6 (2.2-3.7) gm/dL Lipase 25 (7-60) U/L Urine Color Urine Appearance (Clear) Urine pH (5.0-9.0) Ur Specific [place] (1.000-1.035) Urine Protein (Negative) mg/dL Urine Glucose (UA) (Negative) mg/dL Urine Ketones (Negative) mg/dL Urine Occult Blood (Negative) mg/dL Urine Nitrate (Negative) Urine Bilirubin (Negative) mg/dL Urine Urobilinogen mg/dL Ur Leukocyte Esterase (Negative) /uL Ur Culture Indicated? 01/14/22 01/14/22 01/14/22 Range/Units 17:21 18:43 20:07 WBC (4.5-11.0) K/mcL RBC (3.59-5.38) M/mcL Hgb (11.2-15.7) g/dL Hct (34.1-44.9) % POC Hct 46.0 (36-48) MCV (80.0-100.0) fL MCH (26.0-34.0) pg MCHC (31.0-36.0) g/dL RDW (11.5-14.5) % Plt Count (140-440) K/mcL MPV (7.4-10.4) fL Immature Gran % (Auto) (0.0-0.5) % Neut % (Auto) (38.0-78.0) % Lymph % (Auto) (15.5-49.0) % [place] % (Auto) (1.0-12.0) % Eos % (Auto) (0.0-7.0) % Baso % (Auto) (0.0-2.0) % Lymph # (Auto) (1.50-4.80) K/mcL [place] # (Auto) (0.10-0.90) K/mcL Eos # (Auto) (0.00-0.70) K/mcL Baso # (Auto) (0.00-0.30) K/mcL Immature Gran # (0.00-0.05) K/mcl Absolute Neutrophils (1.80-8.00) K/mcL PT (11.9-14.5) sec INR (0.9-1.1) POC VBG pH 7.43 H (7.32-7.42) POC VBG pCO2 at Temp 37.6 L (41-51) POC VBG pO2 38 (25-40) POC VBG HCO3 25.0 (24-28) POC VBG Total CO2 26.0 (25-29) POC Venous O2 Sat 74.0 H (40-70) POC VBG Base Excess 1.0 (-2-2) VBG Lactic Acid 1.0 (0.5-2) POC Sodium 135 (133-145) POC Potassium 4.1 (3.3-5.1) POC Chloride 99 (96-108) POC Total CO2 25.0 (22-30) POC BUN 23 H (6-20) POC Creatinine 0.8 (0.6-1.2) POC Glucose 127 H (70-105) POC WB Ioniz Calcium 1.16 (1.16-1.32) Total Bilirubin (0.1-1.0) mg/dL Direct Bilirubin (0-0.3) mg/dL AST (<32) U/L ALT (<40) U/L Alkaline Phosphatase (39-117) U/L Total Protein (5.9-8.4) gm/dL Albumin (3.2-5.2) gm/dL Globulin (2.2-3.7) gm/dL Lipase (7-60) U/L Urine Color Colorless Urine Appearance Clear (Clear) Urine pH 7.0 (5.0-9.0) Ur Specific [place] 1.015 (1.000-1.035) Urine Protein Negative (Negative) mg/dL Urine Glucose (UA) Negative (Negative) mg/dL Urine Ketones Negative (Negative) mg/dL Urine Occult Blood Negative (Negative) mg/dL Urine Nitrate Negative (Negative) Urine Bilirubin Negative (Negative) mg/dL Urine Urobilinogen Negative mg/dL Ur Leukocyte Esterase Negative (Negative) /uL Ur Culture Indicated? No EKG Data EKG #1: EKG attestation: Yes I reviewed and interpreted this EKG., Yes There are no EKG findings of acute coronary syndrome and Yes This EKG will be read by pest controller EKG results narrative: EKG shows a sinus rhythm with a rate of 77 normal axis there is T wave inversion in V2 no evidence of acute ischemia Discharge Plan Patient/Caregiver Discharge Instructions Pt seen by TREATMENT TECHNICIAN/PA only: No Clinical Impression: Colitis, Hematochezia Patient Disposition: Xfer As Inpt ([facility]) Condition: Fair Discharge Date/Time: 01/14/22 21:45 Discharge Comment: 130
--- NOTE | 2022-01-14 21:16 | Internal Med History&Physical ---
HPI History of Present Illness Patient information: Note initiated : 01/14/22 at 9:11 pm Service Date, if different from initiated Date: [] Patient: Bia Pacheco a 66 y/o F admitted on for rectal bleed. Chief Complaint: [Hematochezia] Chief complaint: Abdominal pain, GI bleed History of present illness: Ms. Pacheco is a 66 year old F with a past medical history significant for hypothyroidism, out, hypertension, and chronic atrial fibrillation on Xarelto who presents to the hospital with sudden onset diffuse abdominal pain associated with hematochezia. The patient states that she was in her usual state of health until 1 PM today when she had a sudden urge to defecate. While she was on the toilet, she began to feel lightheaded and then nauseous. She had an episode of nonbilious vomiting. She walked out of the bathroom and then had another urge to defecate and did not think she was going to make it to the bathroom. She noted frantz blood. At that time, her decided to bring her into the hospital for further management and evaluation. On arrival she was hemodynamically stable and afebrile. Her H&H was 14.8 and 42.5. The patient's BMP was unrevealing. CT abdomen pelvis angiogram reveals colitis involving the transverse colon, descending colon and portions of the sigmoid colon. She was found to have mild free fluid within the pelvis, previous hysterectomy, cholelithiasis and atherosclerotic calcifications of the abdominal aorta. The hospitalist service was asked admit the patient for further management and evaluation of suspected lower GI bleed. Review of Systems All systems: reviewed and no additional remarkable complaints except as stated Constitutional Constitutional: Present as per HPI EENT Eyes: Present as per HPI; Absent blurry vision Cardiovascular Cardiovascular: Present as per HPI; Absent chest pain, dyspnea, dyspnea on exertion, leg edema or palpatations Respiratory Respiratory: Present as per HPI; Absent cough, dyspnea, dyspnea on exertion, wheezing or stridor Gastrointestinal Gastrointestinal: Present as per HPI, abdominal pain, change in bowel habits, diarrhea, hematochezia, melena and nausea; Absent dysphagia, hematemesis or vomiting Musculoskeletal Musculoskeletal: Present as per HPI; Absent joint swelling, limited range of motion, muscle cramps, muscle weakness or myalgias Integumentary Integumentary: Present as per HPI; Absent erythema, new lesions, rash or wounds Neurological Neurological: Present as per HPI; Absent abnormal gait, behavioral changes, focal weakness, headache(s), loss of vision, numbness, sensory deficit or syncope Endocrine Endocrine: Absent change in body appearance, fatigue or heat intolerance Hematologic/Lymphatic Hematologic/Lymphatic: Present as per HPI PFSH PFSH All Active Problems (Updated 01/14/22 @ 21:17 by Radha Cm MD) GI bleed (Acute) Dysphagia (Chronic) Hyponatremia (Acute) Alkaline phosphatase elevation (Acute) Gastric ulcer (Chronic ~2012) Weight loss (Chronic) Allergic rhinitis (Chronic) Hyperlipidemia (Chronic) Nummular eczema (Chronic) Fatigue (Chronic) Other psoriasis (Chronic) Anxiety (Chronic) Neck pain (Chronic) DDD (degenerative disc disease), cervical (Chronic) Erythrocytosis (Chronic) 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) Alcoholism, chronic (Chronic) 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, acquired (Chronic) Hypertension, essential (Chronic) COPD with emphysema (Chronic) Chronic anticoagulation (Chronic) Atrial fibrillation (Chronic) Macrocytosis (Chronic) Medical History (Updated 01/14/22 @ 21:17 by Radha Cm MD) Alcoholism, chronic Alkaline phosphatase elevation Allergic rhinitis Anxiety Atrial fibrillation Chronic anticoagulation Xarelto - for a-fib Cigarette smoker COPD with emphysema DDD (degenerative disc disease), cervical Dysphagia Erythrocytosis Facial swelling Fatigue Gastric ulcer (~2012) Hyperlipidemia Hypertension, essential Hypokalemia Hypomagnesemia 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, acquired Ischemic colitis 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 flecainide for a-fib Macrocytosis Muscle spasm NECK Neck pain Nummular eczema Other psoriasis Weight loss Surgical History History of colonoscopy (~09/01/18) DR BRUNO S/P hysterectomy (~03/15/85) Family History Mother , 81 Myocardial infarction Coronary artery disease History of open heart surgery Colitis Father ETOH abuse Social History marital status: occupational status: employed physical activity: none smoking status: Former smoker quit date: 11/13/20 quit status: considering quitting alcohol intake frequency: 2+ drinks per day substance use type: does not use seatbelt use: always MEDS/ALLERGIES Home Medications and Allergies Home Medications Medication Instructions Recorded Confirmed Type magnesium oxide 400 mg (241.3 mg 400 mg PO BID #10 tabs 11/03/16 01/14/22 Rx magnesium) tablet flecainide 50 mg tablet 50 mg PO BID 08/31/18 01/14/22 History folic acid 1 mg tablet See Rx Instructions .Route 08/11/19 01/14/22 Rx .COMPLEX #90 tabs lansoprazole 15 mg capsule,delayed 15 mg PO QDAY 09/12/19 01/14/22 History release budesonide-formoterol HFA 160 2 puff inhalation BID #30.6 grams 08/12/21 01/14/22 Rx mcg-4.5 mcg/actuation aerosol inhaler (Symbicort) enalapril maleate 20 mg tablet 20 mg PO DAILY #90 tabs 09/02/21 01/14/22 Rx amlodipine 5 mg tablet 5 mg PO QDAY #90 tabs 11/25/21 01/14/22 Rx levothyroxine 88 mcg tablet See Rx Instructions .Route 11/25/21 01/14/22 Rx (Synthroid) .COMPLEX ##90 metoprolol tartrate 100 mg tablet 50 mg PO BID 12/19/21 01/14/22 History rivaroxaban 15 mg tablet (Xarelto) 15 mg PO QDAY #90 tabs 12/19/21 01/14/22 Rx potassium chloride 20 mEq See Rx Instructions .Route 01/03/22 01/14/22 Rx tablet,extended release .COMPLEX #90 tabs Allergies Allergy/AdvReac Type Severity Reaction Status Date / Time No Known Drug Allergies Allergy Verified 01/14/22 16:42 EXAM Constitutional Vitals: Temp Pulse Resp BP Pulse Ox O2 Del Method 97.2 F 81 18 142/65 94 01/14/22 16:39 01/14/22 21:00 01/14/22 16:39 01/14/22 21:00 01/14/22 21:00 01/14/22 16:39 General appearance: average body habitus Head Head exam: Present atraumatic, normal inspection and normocephalic Eye Eye exam: Present EOMI, normal appearance and PERRL; Absent conjunctival injection ENT ENT exam: Present normal exam; Absent mucous membranes dry Neck Neck exam: Present full ROM; Absent lymphadenopathy Respiratory Respiratory exam: Present normal respiratory exam and CTAB; Absent decreased breath sounds, respiratory distress or wheezes Cardiovascular Cardiovascular exam: Present irregular rhythm; Absent JVD GI/Abdominal GI/Abdominal exam: Present normal bowel sounds, soft, guarding and tenderness; Absent diminished bowel sounds, distended, mass or rebound Neurological Exam Neurological exam: Present alert, CN II-XII intact and oriented X3 Psychiatric Psychiatric exam: Present normal affect and normal mood Skin Skin exam: Present intact and warm; Absent erythema, pallor, petechiae or rash DATA Data Completed and Pending Labs: Labs from last 24 hours 01/14/22 01/14/22 01/14/22 20:07 18:43 17:21 WBC RBC Hgb Hct POC Hct 46.0 MCV MCH MCHC RDW Plt Count MPV Immature Gran % (Auto) Neut % (Auto) Lymph % (Auto) [place] % (Auto) Eos % (Auto) Baso % (Auto) Lymph # (Auto) [place] # (Auto) Eos # (Auto) Baso # (Auto) Immature Gran # Absolute Neutrophils PT INR POC VBG pH 7.43 H POC VBG pCO2 at Temp 37.6 L POC VBG pO2 38 POC VBG HCO3 25.0 POC VBG Total CO2 26.0 POC Venous O2 Sat 74.0 H POC VBG Base Excess 1.0 VBG Lactic Acid 1.0 POC Sodium 135 POC Potassium 4.1 POC Chloride 99 POC Total CO2 25.0 POC BUN 23 H POC Creatinine 0.8 POC Glucose 127 H POC WB Ioniz Calcium 1.16 Total Bilirubin Direct Bilirubin AST ALT Alkaline Phosphatase Total Protein Albumin Globulin Lipase Urine Color Colorless Urine Appearance Clear Urine pH 7.0 Ur Specific [place] 1.015 Urine Protein Negative Urine Glucose (UA) Negative Urine Ketones Negative Urine Occult Blood Negative Urine Nitrate Negative Urine Bilirubin Negative Urine Urobilinogen Negative Ur Leukocyte Esterase Negative Ur Culture Indicated? No 01/14/22 01/14/22 01/14/22 17:15 17:15 17:15 WBC 11.3 H RBC 4.31 Hgb 14.8 Hct 42.5 POC Hct MCV 98.6 MCH 34.3 H MCHC 34.8 RDW 12.2 Plt Count 222 MPV 9.8 Immature Gran % (Auto) 0.3 Neut % (Auto) 83.2 H Lymph % (Auto) 9.9 L [place] % (Auto) 5.1 Eos % (Auto) 1.1 Baso % (Auto) 0.4 Lymph # (Auto) 1.12 L [place] # (Auto) 0.57 Eos # (Auto) 0.12 Baso # (Auto) 0.05 Immature Gran # 0.03 Absolute Neutrophils 9.42 H PT 13.4 INR 1.0 POC VBG pH POC VBG pCO2 at Temp POC VBG pO2 POC VBG HCO3 POC VBG Total CO2 POC Venous O2 Sat POC VBG Base Excess VBG Lactic Acid POC Sodium POC Potassium POC Chloride POC Total CO2 POC BUN POC Creatinine POC Glucose POC WB Ioniz Calcium Total Bilirubin 0.5 Direct Bilirubin < 0.2 AST 20 ALT 15 Alkaline Phosphatase 109 Total Protein 6.6 Albumin 4.0 Globulin 2.6 Lipase 25 Urine Color Urine Appearance Urine pH Ur Specific [place] Urine Protein Urine Glucose (UA) Urine Ketones Urine Occult Blood Urine Nitrate Urine Bilirubin Urine Urobilinogen Ur Leukocyte Esterase Ur Culture Indicated? A/P Assessment and plan (1) Atrial fibrillation: Status: Chronic Qualifiers: Atrial fibrillation type: unspecified chronic Qualified Code(s): I48.20 - Chronic atrial fibrillation, unspecified; I48.2 - Chronic atrial fibrillation (2) Chronic anticoagulation: Status: Chronic Comment: Xarelto - for a-fib (3) COPD with emphysema: Status: Chronic Qualifiers: Emphysema type: unspecified Qualified Code(s): J43.9 - Emphysema, unspecified (4) GI bleed: Status: Acute Narrative A/P Narrative: The patient's symptoms, imaging, and clinical exam inconsistent with ischemic colitis, specifically colonic ischemia. Etiology remains unclear however the most common causes hypoperfusion or nonocclusive disease. The patient's blood pressure is quite elevated and there is no evidence of transient hypotension unless she had a brief episode of tachyarrhythmia. The patient is hemodynamically stable with a hemoglobin of 14.2. We will hold her Xarelto. Continue flecainide and Toprol-XL. Empiric antibiotic therapy with Zosyn. She will be kept n.p.o., and we will gently hydrate her with IV fluids. IV morphine for pain control. She is scheduled for colonoscopy tomorrow. Majority of cases resolve with conservative/supportive management. Time Spent With Patient Time: Total time spent is greater than 50% in coordination of care (as documented) at patient's floor/unit and/or counseling patient: Total time spent with greater than 50% in coordination of care (as documented) at patient's floor/unit and/or counseling patient:: 50 - 70 minutes
[2022-01-14] MEDS ORDERED: ONDANSETRON 4 MG/2 ML VIAL IV PRN (21:51)
[2022-01-14] MEDS ORDERED: morphine 4 MG/ML VIAL IV PRN (21:51)
[2022-01-14] MEDS: 0.9 % SODIUM CHLORIDE 10 ML SYRINGE IV SCH (22:02)
[2022-01-14] MEDS: LACTATED RINGERS 1,000 ML IV SCH (22:02)
[2022-01-14] MEDS: SENNOSIDES 1 TABLET PO SCH (23:34)
[2022-01-14] MEDS: DOCUSATE SODIUM 100 MG CAPSULE PO SCH (23:35)
[2022-01-14] MEDS: METOPROLOL TARTRATE 50 MG TABLET PO SCH (23:35)
[2022-01-14] MEDS: FLECAINIDE 50 MG TABLET PO SCH (23:36)
[2022-01-14] MEDS: PIPERACILLIN SODIUM/TAZOBACTAM 3.375 GM in DEXTROSE 5% IN WATER 50 ML IV SCH (23:43)
[2022-01-15] MEDS: PIPERACILLIN SODIUM/TAZOBACTAM 3.375 GM in DEXTROSE 5% IN WATER 50 ML IV SCH ×4 (05:03→22:58)
[2022-01-15] MEDS: 0.9 % SODIUM CHLORIDE 10 ML SYRINGE IV SCH ×3 (05:03→20:33)
[2022-01-15 06:38] LABS: Basophils # (Auto) 0.04 K/mcL (0.00-0.30); Basophils % (Auto) 0.3 % (0.0-2.0); Eosinophils # (Auto) 0.04 K/mcL (0.00-0.70); Eosinophils % (Auto) 0.3 % (0.0-7.0); Hematocrit 42.2 % (34.1-44.9); Hemoglobin 14.4 g/dL (11.2-15.7); Lymphocytes # (Auto) 1.03 K/mcL (1.50-4.80); Lymphocytes % (Auto) 8.7 % (15.5-49.0); Mean Cell Volume 95.5 fL (80.0-100.0); Mean Corpuscular HGB Conc 34.1 g/dL (31.0-36.0); Mean Platelet Volume 9.9 fL (7.4-10.4); Monocytes # (Auto) 0.91 K/mcL (0.10-0.90); Monocytes % (Auto) 7.7 % (1.0-12.0); Neutrophils % (Auto) 82.7 % (38.0-78.0); Platelet Count 248 K/mcL (140-440); RBC 4.42 M/mcL (3.59-5.38); Red Cell Distribution Width 11.9 % (11.5-14.5); WBC 11.8 K/mcL (4.5-11.0)
--- NOTE | 2022-01-15 07:49 | Internal Med Progress Note ---
SUBJECTIVE Subjective Patient information: Note initiated : 01/15/22 at 7:47 am Service Date, if different from initiated Date: [] Patient: Bia Pacheco 66 y/o F admitted on 01/14/22 for rectal bleed. Chief Complaint: [Hematochezia] Principal diagnosis: Hematochezia Interval history: The patient was resting comfortably in bed. She was admitted overnight. Constitutional Vitals: Vital Signs Temp Pulse Resp BP Pulse Ox O2 Del Method 97.6 F 74 16 141/69 95 01/15/22 02:44 01/15/22 02:44 01/15/22 02:44 01/15/22 02:44 01/15/22 02:44 01/15/22 02:44 Period Temp Pulse Resp BP Sys/Brooks Pulse Ox O2 Del Method O2 Flow Rate Last 24 Hr 97.2 F-98.9 F 68-87 16-18 133-160/55-127 92-98 Room Air-Room Air Intake and Output 01/14/22 01/15/22 01/15/22 21:59 05:59 13:59 Intake Total 1000 100 Output Total 0 645 Balance 1000 -545 Weight 67.313 kg Intake & Output: Intake & Output 01/14/22 01/15/22 01/15/22 21:59 05:59 13:59 Intake Total 1000 100 Output Total 0 645 Balance 1000 -545 Weight 67.313 kg Intake: IV 1000 100 Lactated Ringers 1,000 ml @ 1000 Wide Open IV [facility] Rx#: [id number] Zosyn 3.375 gm In Dextrose 5% 100 in Water 50 ml @ 100 mls/hr IV Q6H [facility] Rx#:[id number] Oral 0 Output: Void Amount 125 # of times incontinent of urine 0 0 Urine/Stool Mix 225 Stool 295 Other: Urine Appearance Clear Urine Color Straw Urine Odor Normal Stool Size Moderate Small Stool Color Bright Red Blood Dark Red Blood Stool Consistency Liquid Loose # Voids 1 0 # Bowel Movements 1 1 # of times incontinent of 0 0 Bowels Head Head exam: Present atraumatic and normal inspection Eye Eye exam: Present normal appearance ENT ENT exam: Present mucous membranes moist, normal exam and normal external ear exam Neck Neck exam: Present normal inspection Respiratory Respiratory exam: Present normal respiratory exam Cardiovascular Cardiovascular exam: Present normal rate and rhythm GI/Abdominal GI/Abdominal exam: Present normal bowel sounds, soft and tenderness Back Exam Back exam: Present normal inspection Neurological Exam Neurological exam: Present alert and oriented X3 Skin Skin exam: Present intact and warm OBJ DATA Labs CBC & Chem 7: 01/15/22 05:21 Labs: Abnormal Lab Results 01/15/22 01/14/22 01/14/22 05:21 20:07 17:21 WBC 11.8 H MCH Neut % (Auto) 82.7 H Lymph % (Auto) 8.7 L Lymph # (Auto) 1.03 L [place] # (Auto) 0.91 H Absolute Neutrophils 9.77 H POC VBG pH 7.43 H POC VBG pCO2 at Temp 37.6 L POC Venous O2 Sat 74.0 H POC BUN 23 H POC Glucose 127 H 01/14/22 17:15 WBC 11.3 H MCH 34.3 H Neut % (Auto) 83.2 H Lymph % (Auto) 9.9 L Lymph # (Auto) 1.12 L [place] # (Auto) Absolute Neutrophils 9.42 H POC VBG pH POC VBG pCO2 at Temp POC Venous O2 Sat POC BUN POC Glucose Meds: Medications Docusate Sodium (Docusate Sodium 100 Mg Capsule) 100 mg PO BID [facility] Last Admin: 01/14/22 23:35 Dose: 100 mg Flecainide Acetate (Flecainide 50 Mg Tablet) 50 mg PO BID [facility] Last Admin: 01/14/22 23:36 Dose: 50 mg Lactated Ringer's (Lactated Ringers) 1,000 mls @ 75 mls/hr IV .[id number] [facility] Last Admin: 01/14/22 22:02 Dose: 75 mls/hr Piperacillin Sod/Tazobactam (Sod 3.375 gm/ Dextrose) 50 mls @ 100 mls/hr IV Q6H [facility]; Protocol Last Infusion: 01/15/22 05:33 Dose: Infused Levothyroxine Sodium (Levothyroxine 88 Mcg Tablet) 88 mcg PO QAMAC [facility] Metoprolol Tartrate (Metoprolol Tartrate 50 Mg Tablet) 50 mg PO BID [facility] Last Admin: 01/14/22 23:35 Dose: 50 mg Morphine Sulfate (Morphine 4 Mg/Ml Vial) 4 mg IV Q4HP PRN; Protocol PRN Reason: Per Pain Protocol Ondansetron HCl (Ondansetron 4 Mg/2 Ml Vial) 4 mg IV Q6HP PRN PRN Reason: Nausea And Vomiting Senna (Sennosides 1 Tablet) 2 tab PO HS [facility] Last Admin: 01/14/22 23:34 Dose: 2 tab Sodium Chloride (0.9 % Sodium Chloride 10 Ml Syringe) 10 ml IV Q8 [facility] Last Admin: 01/15/22 05:03 Dose: 10 ml A/P Assessment and plan (1) Atrial fibrillation: Status: Chronic Qualifiers: Atrial fibrillation type: unspecified chronic Qualified Code(s): I48.20 - Chronic atrial fibrillation, unspecified; I48.2 - Chronic atrial fibrillation (2) Chronic anticoagulation: Status: Chronic Comment: Xarelto - for a-fib (3) COPD with emphysema: Status: Chronic Qualifiers: Emphysema type: unspecified Qualified Code(s): J43.9 - Emphysema, unspecified (4) GI bleed: Status: Acute Narrative A/P Narrative: The patient's symptoms, imaging, and clinical exam inconsistent with ischemic colitis, specifically colonic ischemia. Etiology remains unclear however the most common causes hypoperfusion or nonocclusive disease. The patient's blood pressure is quite elevated and there is no evidence of transient hypotension un less she had a brief episode of tachyarrhythmia. The patient is hemodynamically stable with a hemoglobin of 14.2. We will hold her Xarelto. Continue flecainide and Toprol-XL. Empiric antibiotic therapy with Zosyn. She will be kept n.p.o., and we will gently hydrate her with IV fluids. IV morphine for pain control. She is scheduled for colonoscopy tomorrow. Majority of cases resolve with conservative/supportive management. 01/15: The patient's H&H is stable. She will be going for a colonoscopy today and we will follow-up with gastroenterology. Continue conservative management with bowel rest, IV fluid resuscitation and pain control with narcotic analgesics. She was also maintained on empiric Zosyn for the time being. Time Spent With Patient Time: Total time spent is greater than 50% in coordination of care (as documented) at patient's floor/unit and/or counseling patient: Total time spent with greater than 50% in coordination of care (as documented) at patient's floor/unit and/or counseling patient:: 25 - 35 minutes
[2022-01-15] MEDS: LEVOTHYROXINE 88 MCG TABLET PO SCH (08:14)
[2022-01-15] MEDS: METOPROLOL TARTRATE 50 MG TABLET PO SCH ×2 (08:14→20:32)
[2022-01-15] MEDS: DOCUSATE SODIUM 100 MG CAPSULE PO SCH ×2 (08:14→20:32)
[2022-01-15] MEDS: FLECAINIDE 50 MG TABLET PO SCH ×2 (08:15→20:37)
[2022-01-15] MEDS ORDERED: KETAMINE 50 MG/ML ML IV PRN (09:31)
[2022-01-15] MEDS ORDERED: PEG 3350/NA SULF,BICARB,CL/KCL 4,000 ML ORAL.SOL PO ONE (09:34)
[2022-01-15] MEDS ORDERED: MIDAZOLAM 2 MG/2 ML VIAL IV SCH (09:45)
[2022-01-15] MEDS ORDERED: PROPOFOL 200 MG/20 ML VIAL IV SCH (09:45)
--- NOTE | 2022-01-15 09:49 | EKG ---
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 Measurements Intervals [place] Rate: 77 P: 60 PA: 177 QRS: 28 QRSD: 89 T: 49 QT: 384 QTc: 435 Interpretive Statements Sinus rhythm Possible anteroseptal infarct, age indeterminate Electronically Signed On 01-15-2022 9:49:32 PDT by Trace Hart M.D. /store/[email or web address]/[id number]
[2022-01-15] MEDS: LACTATED RINGERS 1,000 ML IV SCH (11:47)
--- NOTE | 2022-01-15 12:59 | Internal Medicine Consult Note ---
HPI Data of Consult Patient: new to practice Consult date: 01/15/22 Primary Care Provider: AYSE Pedersen Consult Narrative Chief complaint: GI bleed Reason for consult: GI bleed History of present illness: 66 year old female with a long history of IBS, history of ischemic colitis 4 years ago and atrial fibrillation on Xarelto presented yesterday to ER for abdominal pain followed by hematochezia. Yesterday, she was eating lunch and developed LLQ abdominal pain. She felt the urge to have a BM, had hard stool followed by soft stool and then frantz hematochezia. She presented to the ED where CT revealed thickening of the transverse and left colon. She uses Miralax and Dulcolax intermittently for constipation but it is intermittent and unpredictable. She used to suffer primarily from post prandial diarrhea but this resolved in the last several years. She denies any history of migraine, NSAID/ASA use. Her mother had similar issues. She is a former smoker, having quit 15 months ago. cc:: CC: Radha Cm MD Review of Systems All systems: reviewed and no additional remarkable complaints except as stated PFSH PFSH All Active Problems (Updated 01/15/22 @ 12:56 by AYSE Castillo) IBS (irritable bowel syndrome) (Acute) Colitis (Acute) Hematochezia (Acute) GI bleed (Acute) Dysphagia (Chronic) Hyponatremia (Acute) Alkaline phosphatase elevation (Acute) Gastric ulcer (Chronic ~2012) Weight loss (Chronic) Allergic rhinitis (Chronic) Hyperlipidemia (Chronic) Nummular eczema (Chronic) Fatigue (Chronic) Other psoriasis (Chronic) Anxiety (Chronic) Neck pain (Chronic) DDD (degenerative disc disease), cervical (Chronic) Erythrocytosis (Chronic) 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) Alcoholism, chronic (Chronic) 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, acquired (Chronic) Hypertension, essential (Chronic) COPD with emphysema (Chronic) Chronic anticoagulation (Chronic) Atrial fibrillation (Chronic) Macrocytosis (Chronic) Medical History (Updated 01/15/22 @ 12:56 by AYSE Castillo) Alcoholism, chronic Alkaline phosphatase elevation Allergic rhinitis Anxiety Atrial fibrillation Chronic anticoagulation Xarelto - for a-fib Cigarette smoker COPD with emphysema DDD (degenerative disc disease), cervical Dysphagia Erythrocytosis Facial swelling Fatigue Gastric ulcer (~2012) Hyperlipidemia Hypertension, essential Hypokalemia Hypomagnesemia 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, acquired 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 colitis 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 flecainide for a-fib Macrocytosis Muscle spasm NECK Neck pain Nummular eczema Other psoriasis Weight loss Surgical History History of colonoscopy (~09/01/18) DR BRUNO S/P hysterectomy (~03/15/85) Family History Mother , 81 Myocardial infarction Coronary artery disease History of open heart surgery Colitis Father ETOH abuse Social History marital status: occupational status: employed physical activity: none smoking status: Former smoker quit date: 11/13/20 quit status: considering quitting alcohol intake frequency: 2+ drinks per day substance use type: does not use seatbelt use: always MEDS/ALLERGIES Home Medications and Allergies Home Medications Medication Instructions Recorded Confirmed Type magnesium oxide 400 mg (241.3 mg 400 mg PO BID #10 tabs 11/03/16 01/15/22 Rx magnesium) tablet flecainide 50 mg tablet 50 mg PO BID 08/31/18 01/15/22 History folic acid 1 mg tablet See Rx Instructions .Route 08/11/19 01/15/22 Rx .COMPLEX #90 tabs lansoprazole 15 mg capsule,delayed 15 mg PO QDAY 09/12/19 01/15/22 History release budesonide-formoterol HFA 160 2 puff inhalation BID #30.6 grams 08/12/21 01/15/22 Rx mcg-4.5 mcg/actuation aerosol inhaler (Symbicort) enalapril maleate 20 mg tablet 20 mg PO DAILY #90 tabs 09/02/21 01/15/22 Rx amlodipine 5 mg tablet 5 mg PO QDAY #90 tabs 11/25/21 01/15/22 Rx levothyroxine 88 mcg tablet See Rx Instructions .Route 11/25/21 01/15/22 Rx (Synthroid) .COMPLEX ##90 metoprolol tartrate 100 mg tablet 50 mg PO BID 12/19/21 01/15/22 History rivaroxaban 15 mg tablet (Xarelto) 15 mg PO QDAY #90 tabs 12/19/21 01/15/22 Rx potassium chloride 20 mEq See Rx Instructions .Route 01/03/22 01/15/22 Rx tablet,extended release .COMPLEX #90 tabs Allergies Allergy/AdvReac Type Severity Reaction Status Date / Time No Known Drug Allergies Allergy Verified 01/14/22 16:42 EXAM Constitutional Vitals: Temp Pulse Resp BP Pulse Ox O2 Del Method 98.4 F 74 20 130/60 95 01/15/22 08:00 01/15/22 08:00 01/15/22 08:00 01/15/22 08:00 01/15/22 08:00 01/15/22 08:00 General appearance: average body habitus, cooperative and no acute distress Head Head exam: Present atraumatic and normal inspection Eye Eye exam: Present normal appearance ENT ENT exam: Present normal exam Respiratory Respiratory exam: Present normal respiratory exam and CTAB; Absent accessory muscle use Cardiovascular Cardiovascular exam: Present normal rate and rhythm; Absent diastolic murmur, irregular rhythm or systolic murmur GI/Abdominal GI/Abdominal exam: Present normal bowel sounds, soft and tenderness; Absent hernia or mass Additional comments: Stool clear and yellow Expanded Lower Extremity Exam Gait: Present observed and normal Neurological Exam Neurological exam: Present alert and oriented X3 Psychiatric Psychiatric exam: Present normal affect and normal mood DATA Data Completed and Pending Labs: Labs from last 24 hours 01/15/22 01/14/22 01/14/22 05:21 20:07 18:43 WBC 11.8 H RBC 4.42 Hgb 14.4 Hct 42.2 POC Hct MCV 95.5 MCH 32.6 MCHC 34.1 RDW 11.9 Plt Count 248 MPV 9.9 Immature Gran % (Auto) 0.3 Neut % (Auto) 82.7 H Lymph % (Auto) 8.7 L [place] % (Auto) 7.7 Eos % (Auto) 0.3 Baso % (Auto) 0.3 Lymph # (Auto) 1.03 L [place] # (Auto) 0.91 H Eos # (Auto) 0.04 Baso # (Auto) 0.04 Immature Gran # 0.04 Absolute Neutrophils 9.77 H PT INR POC VBG pH 7.43 H POC VBG pCO2 at Temp 37.6 L POC VBG pO2 38 POC VBG HCO3 25.0 POC VBG Total CO2 26.0 POC Venous O2 Sat 74.0 H POC VBG Base Excess 1.0 VBG Lactic Acid 1.0 POC Sodium POC Potassium POC Chloride POC Total CO2 POC BUN POC Creatinine POC Glucose POC WB Ioniz Calcium Total Bilirubin Direct Bilirubin AST ALT Alkaline Phosphatase Total Protein Albumin Globulin Lipase Urine Color Colorless Urine Appearance Clear Urine pH 7.0 Ur Specific [place] 1.015 Urine Protein Negative Urine Glucose (UA) Negative Urine Ketones Negative Urine Occult Blood Negative Urine Nitrate Negative Urine Bilirubin Negative Urine Urobilinogen Negative Ur Leukocyte Esterase Negative Ur Culture Indicated? No 01/14/22 01/14/22 01/14/22 17:21 17:15 17:15 WBC RBC Hgb Hct POC Hct 46.0 MCV MCH MCHC RDW Plt Count MPV Immature Gran % (Auto) Neut % (Auto) Lymph % (Auto) [place] % (Auto) Eos % (Auto) Baso % (Auto) Lymph # (Auto) [place] # (Auto) Eos # (Auto) Baso # (Auto) Immature Gran # Absolute Neutrophils PT 13.4 INR 1.0 POC VBG pH POC VBG pCO2 at Temp POC VBG pO2 POC VBG HCO3 POC VBG Total CO2 POC Venous O2 Sat POC VBG Base Excess VBG Lactic Acid POC Sodium 135 POC Potassium 4.1 POC Chloride 99 POC Total CO2 25.0 POC BUN 23 H POC Creatinine 0.8 POC Glucose 127 H POC WB Ioniz Calcium 1.16 Total Bilirubin 0.5 Direct Bilirubin < 0.2 AST 20 ALT 15 Alkaline Phosphatase 109 Total Protein 6.6 Albumin 4.0 Globulin 2.6 Lipase 25 Urine Color Urine Appearance Urine pH Ur Specific [place] Urine Protein Urine Glucose (UA) Urine Ketones Urine Occult Blood Urine Nitrate Urine Bilirubin Urine Urobilinogen Ur Leukocyte Esterase Ur Culture Indicated? 01/14/22 17:15 WBC 11.3 H RBC 4.31 Hgb 14.8 Hct 42.5 POC Hct MCV 98.6 MCH 34.3 H MCHC 34.8 RDW 12.2 Plt Count 222 MPV 9.8 Immature Gran % (Auto) 0.3 Neut % (Auto) 83.2 H Lymph % (Auto) 9.9 L [place] % (Auto) 5.1 Eos % (Auto) 1.1 Baso % (Auto) 0.4 Lymph # (Auto) 1.12 L [place] # (Auto) 0.57 Eos # (Auto) 0.12 Baso # (Auto) 0.05 Immature Gran # 0.03 Absolute Neutrophils 9.42 H PT INR POC VBG pH POC VBG pCO2 at Temp POC VBG pO2 POC VBG HCO3 POC VBG Total CO2 POC Venous O2 Sat POC VBG Base Excess VBG Lactic Acid POC Sodium POC Potassium POC Chloride POC Total CO2 POC BUN POC Creatinine POC Glucose POC WB Ioniz Calcium Total Bilirubin Direct Bilirubin AST ALT Alkaline Phosphatase Total Protein Albumin Globulin Lipase Urine Color Urine Appearance Urine pH Ur Specific [place] Urine Protein Urine Glucose (UA) Urine Ketones Urine Occult Blood Urine Nitrate Urine Bilirubin Urine Urobilinogen Ur Leukocyte Esterase Ur Culture Indicated? A/P Assessment and plan (1) Colitis: Plan: Her history of IBS-C and ischemic colitis suggests recurrent ischemic colitis, which we discussed at length, comparing it to "heart atatck of the colon". IBS suffers have a seven fold increased risk of ischemic colitis, so aggressive control of her IBS with a secretagogue, such as linaclotide or Trulance. All attempts to avoid constipation should be made. We will proceed with colonoscopy. We discussed possible risks of ischemic colitis include stricture or femoral nerve infarct, but most people recover well. She will follow up with our office as an outpatient following colonoscopy. Status: Acute (2) Hematochezia: Status: Acute (3) IBS (irritable bowel syndrome): Status: Acute Time Spent With Patient Time: Total time spent is greater than 50% in coordination of care (as documented) at patient's floor/unit and/or counseling patient: Total time spent with greater than 50% in coordination of care (as documented) at patient's floor/unit and/or counseling patient:: 25 - 35 minutes
[2022-01-15] MEDS ORDERED: MIDAZOLAM 2 MG/2 ML VIAL ONE (15:22)
[2022-01-15] MEDS ORDERED: PROPOFOL 200 MG/20 ML VIAL IV ONE (15:23)
[2022-01-15] MEDS ORDERED: morphine 2 MG/ML VIAL IV PRN (19:44)
[2022-01-15] MEDS ORDERED: morphine 4 MG/ML VIAL IV PRN (19:46)
[2022-01-15] MEDS: 0.9 % SODIUM CHLORIDE 1,000 ML IV SCH (20:25)
[2022-01-15] MEDS: SENNOSIDES 1 TABLET PO SCH (20:32)
[2022-01-16] MEDS: PIPERACILLIN SODIUM/TAZOBACTAM 3.375 GM in DEXTROSE 5% IN WATER 50 ML IV SCH ×3 (05:36→17:15)
[2022-01-16] MEDS: 0.9 % SODIUM CHLORIDE 10 ML SYRINGE IV SCH ×3 (05:37→21:11)
[2022-01-16 06:57] LABS: Basophils # (Auto) 0.05 K/mcL (0.00-0.30); Basophils % (Auto) 0.4 % (0.0-2.0); Eosinophils # (Auto) 0.24 K/mcL (0.00-0.70); Eosinophils % (Auto) 1.9 % (0.0-7.0); Hematocrit 38.5 % (34.1-44.9); Hemoglobin 13.1 g/dL (11.2-15.7); Lymphocytes # (Auto) 1.38 K/mcL (1.50-4.80); Lymphocytes % (Auto) 10.9 % (15.5-49.0); Mean Cell Volume 96.5 fL (80.0-100.0); Mean Platelet Volume 9.5 fL (7.4-10.4); Monocytes # (Auto) 0.85 K/mcL (0.10-0.90); Monocytes % (Auto) 6.7 % (1.0-12.0); Neutrophils % (Auto) 79.6 % (38.0-78.0); Platelet Count 224 K/mcL (140-440); RBC 3.99 M/mcL (3.59-5.38); Red Cell Distribution Width 11.8 % (11.5-14.5); WBC 12.7 K/mcL (4.5-11.0)
[2022-01-16 07:17] LABS: ALT/SGPT 9 U/L (<40); AST/SGOT 13 U/L (<32); Albumin 3.2 gm/dL (3.2-5.2); Albumin/Globulin Ratio 1.2 (1.0-2.3); Alkaline Phosphatase 106 U/L (39-117); Bilirubin,Direct < 0.2 mg/dL (0-0.3); Bilirubin,Total 0.8 mg/dL (0.1-1.0); Blood Urea Nitrogen 7 mg/dL (8-23); Calcium 8.7 mg/dL (8.6-10.4); Carbon Dioxide 25 mmol/L (22-30); Chloride 95 mmol/L (96-108); Globulin 2.7 gm/dL (2.2-3.7); Glomerular Filtration Rate 90; Glucose 93 mg/dL (70-105); Lactate Dehydrogenase 190 U/L (135-225); Phosphorous 3.1 mg/dL (2.5-4.5); Triglycerides 51 mg/dL (<150); Uric Acid 2.3 mg/dL (2.5-8.0)
--- NOTE | 2022-01-16 09:18 | Colonoscopy Procedure Note ---
Colonoscopy Procedure Notes Procedure Information Patient information: Note initiated : 01/16/22 at 9:16 am Patient: Bia Pacheco 66 y/o F admitted on 01/14/22 for rectal bleed. Pre-op diagnosis general: Ischemic colitis. BRBPR. Post-op diagnosis general: Severe ischemic colitis. Date of Procedure: 01/15/22 Procedure: Colonoscopy with Bx Procedure narrative: The procedure, alternatives and risks were discussed with the patient and the patient's questions were answered. With endoscopist-administered intravenous sedation, the Olympus colonoscope was introduced into the rectum and advanced to the cecum. Ileocecal valve was identified, intubated, and several centimeters of the terminal ileum were examined and appeared normal. Changes consistent with severe ischemic colitis were seen extending from the mid transverse colon distally to the mid sigmoid colon. Biopsies were taken from the descending colon. Assessment: Severe ischemic colitis. We will attempt to advance her diet and, if stable, she may be discharged for outpatient follow up tomorrow. Her untreated IBS increases the risk of recurrent episodes and we recommend a cautious trial of a tricyclic as well as taking measures to avoid any constipation.
[2022-01-16] MEDS: DOCUSATE SODIUM 100 MG CAPSULE PO SCH ×2 (11:39→21:09)
[2022-01-16] MEDS: LEVOTHYROXINE 88 MCG TABLET PO SCH (11:39)
[2022-01-16] MEDS: FLECAINIDE 50 MG TABLET PO SCH ×2 (11:40→21:10)
[2022-01-16] MEDS: METOPROLOL TARTRATE 50 MG TABLET PO SCH ×2 (11:40→21:10)
--- NOTE | 2022-01-16 12:34 | Internal Med Progress Note ---
SUBJECTIVE Subjective Patient information: Note initiated : 01/16/22 at 12:28 pm Service Date, if different from initiated Date: [] Patient: Bia Pacheco a 66 y/o F admitted on 01/14/22 for rectal bleed. Chief Complaint: [] Principal diagnosis: Hematochezia Interval history: History of present illness: Ms. Pacheco is a 66 year old F with a past medical history significant for hypothyroidism, out, hypertension, and chronic atrial fibrillation on Xarelto who presents to the hospital with sudden onset diffuse abdominal pain associated with hematochezia. The patient states that she was in her usual state of health until 1 PM today when she had a sudden urge to defecate. While she was on the toilet, she began to feel lightheaded and then nauseous. She had an episode of nonbilious vomiting. She walked out of the bathroom and then had another urge to defecate and did not think she was going to make it to the bathroom. She noted frantz blood. At that time, her decided to bring her into the hospital for further management and evaluation. On arrival she was hemodynamically stable and afebrile. Her H&H was 14.8 and 42.5. The patient's BMP was unrevealing. CT abdomen pelvis angiogram reveals colitis involving the transverse colon, descending colon and portions of the sigmoid colon. She was found to have mild free fluid within the pelvis, previous hysterectomy, cholelithiasis and atherosclerotic calcifications of the abdominal aorta. The hospitalist service was asked admit the patient for further management and evaluation of suspected lower GI bleed. 01/16-patient post colonoscopy, severe ischemic colitis on imaging. Per GI we will advance diet as tolerated. Likely discharge in 24 hours. Xarelto has been held for A. fib. Currently on flecainide, DC antibiotics. Avoid constipation. Will need outpatient follow-up with GI for IBS management/posthospitalization follow-up Constitutional Vitals: Vital Signs Temp Pulse Resp BP Pulse Ox O2 Del Method 98.1 F 75 15 147/73 95 01/16/22 11:39 01/16/22 11:39 01/16/22 11:39 01/16/22 11:39 01/16/22 11:39 01/16/22 11:39 Period Temp Pulse Resp BP Sys/Brooks Pulse Ox O2 Del Method O2 Flow Rate Last 24 Hr 97.3 F-98.2 F 71-105 15-24 116-157/58-73 92-100 Room Air-Room Air Intake and Output 01/15/22 01/16/22 01/16/22 21:59 05:59 13:59 Intake Total 50 550 50 Output Total 675 560 450 Balance -625 -10 -400 Weight 67.993 kg Alert oriented Nonlabored Anxious Minimally tender abdomen Intake & Output: Intake & Output 01/15/22 01/16/22 01/16/22 21:59 05:59 13:59 Intake Total 50 550 50 Output Total 675 560 450 Balance -625 -10 -400 Weight 67.993 kg Intake: IV 50 50 50 Lactated Ringers 1,000 ml @ 75 0 mls/hr IV .[id number] [facility] Rx#: [id number] Zosyn 3.375 gm In Dextrose 5% 50 50 50 in Water 50 ml @ 100 mls/hr IV Q6H [facility] Rx#:[id number] Oral 500 Output: Void Amount 650 400 300 Stool 25 160 150 Other: Urine Appearance Clear Clear Clear Urine Color Pale Bright Yellow Bright Yellow Urine Odor Normal Stool Size Small Stool Color Blood Tinged Dark Red Blood Brown Blood Tinged Stool Consistency Liquid Liquid Liquid # Bowel Movements 1 OBJ DATA Labs CBC & Chem 7: 01/16/22 05:39 01/16/22 05:39 Labs: Abnormal Lab Results 01/16/22 01/16/22 01/15/22 05:39 05:39 05:21 WBC 12.7 H 11.8 H MCH Neut % (Auto) 79.6 H 82.7 H Lymph % (Auto) 10.9 L 8.7 L Lymph # (Auto) 1.38 L 1.03 L [place] # (Auto) 0.91 H Immature Gran # 0.06 H Absolute Neutrophils 10.13 H 9.77 H POC VBG pH POC VBG pCO2 at Temp POC Venous O2 Sat Sodium 129 L Chloride 95 L POC BUN BUN 7 L POC Glucose Uric Acid 2.3 L 01/14/22 01/14/22 01/14/22 20:07 17:21 17:15 WBC 11.3 H MCH 34.3 H Neut % (Auto) 83.2 H Lymph % (Auto) 9.9 L Lymph # (Auto) 1.12 L [place] # (Auto) Immature Gran # Absolute Neutrophils 9.42 H POC VBG pH 7.43 H POC VBG pCO2 at Temp 37.6 L POC Venous O2 Sat 74.0 H Sodium Chloride POC BUN 23 H BUN POC Glucose 127 H Uric Acid Meds: Medications Docusate Sodium (Docusate Sodium 100 Mg Capsule) 100 mg PO BID [facility] Last Admin: 01/16/22 11:39 Dose: 100 mg Flecainide Acetate (Flecainide 50 Mg Tablet) 50 mg PO BID [facility] Last Admin: 01/16/22 11:40 Dose: 50 mg Piperacillin Sod/Tazobactam (Sod 3.375 gm/ Dextrose) 50 mls @ 100 mls/hr IV Q6H [facility]; Protocol Last Infusion: 01/16/22 06:06 Dose: Infused Sodium Chloride (Sodium Chloride 0.9%) 1,000 mls @ 50 mls/hr IV .Q20H [facility] Last Admin: 01/15/22 20:25 Dose: 50 mls/hr Levothyroxine Sodium (Levothyroxine 88 Mcg Tablet) 88 mcg PO QAMAC [facility] Last Admin: 01/16/22 11:39 Dose: 88 mcg Metoprolol Tartrate (Metoprolol Tartrate 50 Mg Tablet) 50 mg PO BID [facility] Last Admin: 01/16/22 11:40 Dose: 50 mg Morphine Sulfate (Morphine 2 Mg/Ml Vial) 1 - 2 mg IV Q6HP PRN; Protocol PRN Reason: PAIN LEVEL 3-6 Morphine Sulfate (Morphine 4 Mg/Ml Vial) 3 - 4 mg IV Q6HP PRN; Protocol PRN Reason: PAIN LEVEL > 6 Ondansetron HCl (Ondansetron 4 Mg/2 Ml Vial) 4 mg IV Q6HP PRN PRN Reason: Nausea And Vomiting Last Admin: 01/15/22 11:38 Dose: 4 mg Senna (Sennosides 1 Tablet) 2 tab PO HS [facility] Last Admin: 01/15/22 20:32 Dose: Not Given Sodium Chloride (0.9 % Sodium Chloride 10 Ml Syringe) 10 ml IV Q8 [facility] Last Admin: 01/16/22 05:37 Dose: Not Given A/P Narrative A/P Narrative: * Ischemic colitis hematochezia clinically improving. Status post colonoscopy. GI recommends advancing diet as tolerated/aggressive management of constipation. Will need outpatient follow-up with GI for management of IBS * History of hypothyroidism continue thyroxine * History of atrial fibrillation rhythm controlled currently on metoprolol/flecainide, Xarelto on hold * GERD continue PPI * Hypertension continue enalapril/beta-arnoldo/amlodipine * COPD continue bronchodilators Plan * Advance diet as tolerated * Pre-existing medical condition management as above * Physical therapy * Possible discharge in 24 hours with outpatient GI follow-up Time Spent With Patient Time: Total time spent is greater than 50% in coordination of care (as documented) at patient's floor/unit and/or counseling patient: Total time spent with greater than 50% in coordination of care (as documented) at patient's floor/unit and/or counseling patient:: 25 - 35 minutes
[2022-01-16] MEDS: 0.9 % SODIUM CHLORIDE 1,000 ML IV SCH (16:06)
[2022-01-16] MEDS: SENNOSIDES 1 TABLET PO SCH (21:17)
[2022-01-17] MEDS: 0.9 % SODIUM CHLORIDE 10 ML SYRINGE IV SCH (04:20)
[2022-01-17] MEDS: LEVOTHYROXINE 88 MCG TABLET PO SCH (07:26)
[2022-01-17 07:41] LABS: Basophils # (Auto) 0.05 K/mcL (0.00-0.30); Basophils % (Auto) 0.4 % (0.0-2.0); Eosinophils # (Auto) 0.55 K/mcL (0.00-0.70); Eosinophils % (Auto) 4.7 % (0.0-7.0); Hematocrit 40.2 % (34.1-44.9); Hemoglobin 13.7 g/dL (11.2-15.7); Lymphocytes # (Auto) 1.87 K/mcL (1.50-4.80); Lymphocytes % (Auto) 15.9 % (15.5-49.0); Mean Cell Volume 97.8 fL (80.0-100.0); Mean Corpuscular HGB Conc 34.1 g/dL (31.0-36.0); Mean Platelet Volume 9.7 fL (7.4-10.4); Monocytes # (Auto) 0.84 K/mcL (0.10-0.90); Monocytes % (Auto) 7.1 % (1.0-12.0); Neutrophils % (Auto) 71.6 % (38.0-78.0); Platelet Count 260 K/mcL (140-440); RBC 4.11 M/mcL (3.59-5.38); Red Cell Distribution Width 11.6 % (11.5-14.5); WBC 11.8 K/mcL (4.5-11.0)
[2022-01-17 08:06] LABS: ALT/SGPT 10 U/L (<40); AST/SGOT 14 U/L (<32); Albumin 3.3 gm/dL (3.2-5.2); Alkaline Phosphatase 106 U/L (39-117); Bilirubin,Direct < 0.2 mg/dL (0-0.3); Bilirubin,Total 0.5 mg/dL (0.1-1.0); Blood Urea Nitrogen 5 mg/dL (8-23); Calcium 9.1 mg/dL (8.6-10.4); Carbon Dioxide 22 mmol/L (22-30); Chloride 99 mmol/L (96-108); Globulin 3.2 gm/dL (2.2-3.7); Glomerular Filtration Rate 90; Glucose 93 mg/dL (70-105); Lactate Dehydrogenase 218 U/L (135-225); Phosphorous 2.9 mg/dL (2.5-4.5); Triglycerides 60 mg/dL (<150); Uric Acid 2.6 mg/dL (2.5-8.0)
[2022-01-17] MEDS: METOPROLOL TARTRATE 50 MG TABLET PO SCH (08:09)
[2022-01-17] MEDS: DOCUSATE SODIUM 100 MG CAPSULE PO SCH (08:09)
--- NOTE | 2022-01-17 09:08 | Discharge Summary ---
Discharge Provider Provider IMPORTANT FOLLOW-UP INFORMATION FOR PCP: Patient information: Note initiated : 01/17/22 at 9:07 am Service Date, if different from initiated Date: [] Patient: Bia Pacheco a 66 y/o F admitted on 01/14/22 for rectal bleed. Chief Complaint: [] Date of admission: 01/14/22 21:46 Discharge date: 01/17/22 Primary care physician: AYSE Pedersen Consults: 01/14/22 Consult to Physician [CONS] Stat Comment: Consulting Provider: Jg Rivera Reason For Exam: Physician to Consult Consult to Physician [CONS] Stat Comment: Consulting Provider: Radha Cm Reason For Exam: Physician to Consult COURSE Hospital Course Hospital course: Discharge diagnosis * Ischemic colitis hematochezia clinically improving. Status post colonoscopy. GI recommends advancing diet as tolerated/aggressive management of constipation. Will need outpatient follow-up with GI for management of IBS * History of hypothyroidism continue thyroxine * History of atrial fibrillation rhythm controlled currently on metoprolol/flecainide, Xarelto on hold * GERD continue PPI * Hypertension continue enalapril/beta-arnoldo/amlodipine * COPD continue bronchodilators Brief hospital course Ms. Pacheco is a 66 year old F with a past medical history significant for hypothyroidism, out, hypertension, and chronic atrial fibrillation on Xarelto who presents to the hospital with sudden onset diffuse abdominal pain associated with hematochezia. The patient states that she was in her usual state of health until 1 PM today when she had a sudden urge to defecate. While she was on the toilet, she began to feel lightheaded and then nauseous. She had an episode of nonbilious vomiting. She walked out of the bathroom and then had another urge to defecate and did not think she was going to make it to the bathroom. She noted frantz blood. At that time, her decided to bring her into the hospital for further management and evaluation. On arrival she was hemodynamically stable and afebrile. Her H&H was 14.8 and 42.5. The patient's BMP was unrevealing. CT abdomen pelvis angiogram reveals colitis involving the transverse colon, descending colon and portions of the sigmoid colon. She was found to have mild free fluid within the pelvis, previous hysterectomy, cholelithiasis and atherosclerotic calcifications of the abdominal aorta. The hospitalist service was asked admit the patient for further management and evaluation of suspected lower GI bleed. 01/16-patient post colonoscopy, severe ischemic colitis on imaging. Per GI we will advance diet as tolerated. Likely discharge in 24 hours. Xarelto has been held for A. fib. Currently on flecainide, DC antibiotics. Avoid constipation. Will need outpatient follow-up with GI for IBS management/posthospitalization follow-up 01/17-patient doing well. No overnight events. Tolerating diet. No further bloody bowels or abdominal pain. Clinically stable. Requesting discharge. Advised to follow-up with PCP in 5 to 7 days. Discharge diagnosis: Ischemic colitis Time Spent with Patient Time attestation: Total time spent providing and/or coordinating discharge services: Time spent: Greater than 30 minutes EXAM Constitutional Vitals: Temp Pulse Resp BP Pulse Ox O2 Del Method 98.1 F 63 16 146/73 94 01/17/22 06:38 01/17/22 06:38 01/17/22 06:38 01/17/22 06:38 01/17/22 06:38 01/17/22 04:16 Discharge Data Data Completed and Pending Labs on day of discharge: Labs from last 24 hours 01/17/22 01/17/22 05:55 05:55 WBC 11.8 H RBC 4.11 Hgb 13.7 Hct 40.2 MCV 97.8 MCH 33.3 MCHC 34.1 RDW 11.6 Plt Count 260 MPV 9.7 Immature Gran % (Auto) 0.3 Neut % (Auto) 71.6 Lymph % (Auto) 15.9 Tama % (Auto) 7.1 Eos % (Auto) 4.7 Baso % (Auto) 0.4 Lymph # (Auto) 1.87 Tama # (Auto) 0.84 Eos # (Auto) 0.55 Baso # (Auto) 0.05 Immature Gran # 0.04 Absolute Neutrophils 8.48 H Sodium 134 Potassium 3.4 Chloride 99 Carbon Dioxide 22 Anion Gap 13.0 BUN 5 L Creatinine 0.7 GFR Calculation 90 Glucose 93 Uric Acid 2.6 Calcium 9.1 Phosphorus 2.9 Magnesium 1.7 Total Bilirubin 0.5 Direct Bilirubin < 0.2 GGT 22 AST 14 ALT 10 Alkaline Phosphatase 106 Lactate Dehydrogenase 218 Total Protein 6.5 Albumin 3.3 Globulin 3.2 Albumin/Globulin Ratio 1.0 Triglycerides 60 Discharge Plan Patient/Caregiver Discharge Instructions Activity: increase activity as tolerated Diet: Regular Diet Activity Restrictions/Additional Instructions: Avoid constipation Return to ER abdominal pain diarrhea stool Follow-up PCP in 5 to 7 days Prescriptions: New docusate sodium 100 mg Capsule 100 mg PO BID Qty: 30 0RF Continued lansoprazole 15 mg capsule,delayed release(DR/EC) 15 mg PO QDAY folic acid 1 mg tablet See Rx Instructions .ROUTE .COMPLEX Qty: 90 3RF Dose Instruction: TAKE 1 TABLET DAILY Rx Instructions: TAKE 1 TABLET DAILY budesonide-formoterol [Symbicort] 160-4.5 mcg/actuation HFA aerosol inhaler 2 puff INHALATION BID Qty: 30.6 4RF enalapril maleate 20 mg tablet 20 mg PO DAILY Qty: 90 1RF levothyroxine [Synthroid] 88 mcg tablet See Rx Instructions .ROUTE .COMPLEX Qty: 90 0RF Dose Instruction: TAKE 1 TABLET DAILY Rx Instructions: TAKE 1 TABLET DAILY amlodipine 5 mg tablet 5 mg PO QDAY Qty: 90 0RF potassium chloride 20 mEq tablet extended release See Rx Instructions .ROUTE .COMPLEX Qty: 90 1RF Dose Instruction: TAKE 1 TABLET BY MOUTH EVERY DAY Rx Instructions: TAKE 1 TABLET BY MOUTH EVERY DAY metoprolol tartrate 100 mg tablet 50 mg PO BID Xarelto 15 mg tablet 15 mg PO QDAY Qty: 90 1RF Rx Instructions: must administer with evening meal magnesium oxide 400 MG tablet 400 mg PO BID Qty: 10 0RF flecainide 50 MG tablet 50 mg PO BID Follow Up Plan Follow up with: Isaías Marks ARNP [Primary Care Provider] - Patient Disposition: Home, Self-Care Prognosis: Fair Rehab Potential: Fair I certify that the patient requires SNF services: No Overall status at discharge: patient is back to baseline Discharge Orders: Discharge Order (Routine); Ordered 01/17/22 Ordered By: Feroz Prasad
== END 2022-01-17 12:08 | disposition home or self-care (01) | DRG 394 ==
LOC: ED 16:38 → MEDSUR 21:46
PROVIDERS: ADMIT Student in an Organized Health Care Education/Training Program; ATTEND Internal Medicine